=== PATIENT | male | born 1935 | race Caucasian/White ===

== ENCOUNTER → 2016-05-02 | Outpatient (CLI) | payer OTHER ==
--- NOTE | 2016-05-02 10:26 | US ---
Ultrasound of the Abdomen, Limited with liver and shunt color flow Doppler evaluation History: Recent TIPS procedure November,. Check shunt patency. Findings: Color flow Doppler liver and shunt: TIPS shunt is patent extending from the right portal vein to the right hepatic vein near the IVC. Hepatopedal flow is seen associated with the main portal vein and sp lenic vein. Subtle pulsatility is seen as expected. Normal pulsatile Doppler is present of the hepati c veins. Hepatic artery also is visualized with normal Doppler waveform. Color-flow duplex imaging of the shunt as follows: Proximal TIPS: 81 cm/s, mid TIPS: 110 cm/s, dista l TIPS: 58 cm/s, TIPS in the IVC, 81-101 cm/s. Pancreas: The pancreas head and body are normal in appearance. The tail of the pancreas is obscured b y overlying bowel gas. Liver: Mild heterogeneous echotexture without evidence of focal mass. The liver is normal in size shayla suring 14.3 cm in length. There is mild lobulated contour to the liver. Gallbladder: Small mobile gallstones are present within the gallbladder. There is no wall thickening, or pericholecystic fluid. The patient was not significantly tender over the gallbladder fossa. Comm on bile duct is normal measuring 5 mm in diameter. Right Kidney: Normal without hydronephrosis. Aorta: Visualized upper abdominal aorta demonstrates no aneurysm. Intrahepatic IVC: Normal Impression: 1. The tips shunt is patent without evidence of stenosis with normal color flow Doppler pattern and n ormal velocities. 2. Heterogeneous echotexture of the liver with slight lobulation of the contour suggestive of underly ing cirrhosis. 3. Tiny gallstone suspected in the gallbladder.
== END ==
LOC: FIMAGING 08:22
PROVIDERS: ATTEND Internal Medicine
DX: Z45.2 Encounter for adjustment and management of vascular access device (principal)

== ENCOUNTER → 2016-09-19 | Outpatient (CLI) | payer OTHER | LOC: FIMAGING 13:58 | PROVIDERS: ATTEND Psychiatry & Neurology Neurology | DX: G30.1 Alzheimer's disease with late onset (principal); F02.80 Dementia in other diseases classified elsewhere, unspecified severity, without behavioral disturbance, psychotic disturbance, mood disturbance, and anxiety ==

== ENCOUNTER 2017-01-03 11:44 | Inpatient (IN) | payer OTHER ==
--- NOTE | 2017-01-03 12:03 | EDPHY ---
H & P Stated Complaint: wound r leg looking infected/sees yen at wound clinic Time Seen by Provider: 01/03/17 12:03 - Personal History Current Tetanus/Diphtheria Vaccine: Yes Tetanus Vaccine Date: 2014 - Medical/Surgical History Hx Asthma: No Hx Chronic Respiratory Disease: No Hx Diabetes: No Hx Cardiac Disease: Yes Hx Renal Disease: No Hx Cirrhosis: Yes Hx Alcoholism: No Hx HIV/AIDS: No Hx Splenectomy or Spleen Trauma: No Other PMH: Polycythemia Vera, hypothyroid, Wenkebach, GI bleed, varacies, polio at age 13, sugery on lumbar spine L3-4 in 1970s, liver damage, portal HTN, recent pulmonary edema, melanoma on face, SENECA, esophageal varices, portal hypertension - Social History Smoking Status: Never smoked Constitutional: Initial Vital Signs Temperature (C) 36.9 C 01/03/17 11:50 Heart Rate 63 01/03/17 11:50 Respiratory Rate 17 01/03/17 11:50 Blood Pressure 103/54 L 01/03/17 11:50 O2 Sat (%) 97 01/03/17 11:50 O2 Delivery Mode Room Air Allergies/Adverse Reactions: adhesive Allergy (Verified 01/03/17 11:46) NSAIDS (Non-Steroidal Anti-Inflamma Allergy (Verified 01/03/17 11:46) Increased risk of bleeding due to hematological d.o. Home Medications: Medication Instructions Recorded Levothyroxine [Synthroid 50 mcg 50 mcg PO DAILY06 05/26/14 (*)] Hydroxyurea [Hydrea 500 mg (*)] 500 mg PO BID 07/19/15 Furosemide [Lasix 20 MG (*)] 20 mg PO DAILY #30 tab 09/22/15 Rifaximin [Xifaxan] 550 mg PO BID #60 tab 09/22/15 Sertraline HCl [Zoloft 50mg (*)] 50 mg PO DAILY@20 10/03/15 Dextran/Hypromellose/Glycerin 1 drop EACHEYE DAILY PRN 11/02/15 [Tears Naturale Forte Drops] Spironolactone [Aldactone] 50 mg PO DAILY 11/02/15 Donepezil HCl [Aricept 5 MG (*)] 5 mg PO HS 01/03/17 Herbals/Supplements -Info Only 1 ea PO DAILY 01/03/17 Medical Decision Making ED Course/Re-evaluation: CHIEF COMPLAINT: Rash HISTORY OF PRESENT ILLNESS: The patient is an 81 y/o male with a history of cellulitis, sepsis, cirrhosis, and chronic wounds arriving with his daughter complaining of a rash and swelling in his lower legs and streaking up to his groin onset today. He is followed by the wound care clinic and is changing dressings every five days. He is complaining of discomfort, particularly at the streaking in the groin area. He has no history of kidney problems, is currently afebrile and is not taking any antibiotics. REVIEW OF SYSTEMS: A 10 point review of systems was performed and is negative with the exception of the elements mentioned in the history of present illness. PHYSICAL EXAM: HR, BP, O2 Sat, RR. Temp noted General Appearance: Alert, well hydrated, appropriate, and non-toxic appearing. Head: Atraumatic without scalp tenderness or obvious injury Eyes: Pupils equal, round, reactive to light and accommodation, EOMI, no trauma , no injection. Nose: Atraumatic, no rhinorrhea, clear. Throat: Mucus membranes moist. Neck: Supple, nontender, no lymphadenopathy. Respiratory: No retractions, no distress, no wheezes, and no accessory muscle use. Lungs are clear to auscultation bilaterally. Cardiovascular: Regular rate and rhythm, no murmurs, rubs, or gallops. Dorsalis pedis, and posterior tibial pulses intact. Good capillary refill all extremities. Gastrointestinal: Abdomen is soft, nontender, non-distended, no masses, no rebound, no guarding, no peritoneal signs. Musculoskeletal: Normal active ROM of all extremities, atraumatic. Neurological: Alert, appropriate, and interactive. Non-focal neuro exam. Skin: Cellulitic changes to both lower legs with streaking and tenderness to groin on right side, worse on right, good turgor, no nodules on palpation. Past medical history: Cellulitis, open wounds, cirrhosis, portal hypertension, sepsis. Past surgical history: Denies Family history: Non-contributory Social history: Daughter at bedside, lives in [place], . DIFFERENTIAL DIAGNOSIS: The differential diagnosis for the patient's symptoms included but was not limited to cellulitis, chronic wound infection, pneumonia, urinary tract infection, viral syndrome, meningitis, and sepsis. MEDICAL DECISION MAKING: The patient is an 81 y/o male presenting with rash and open wounds in the lower extremities. He has a history of cellulitis and is being treated for the open wounds. The rash is primarily in the lower legs and extends into the groin with streaking. He is not currently on any antibiotics. As he does not have skilled care at home, I advised admission for several days of IV antibiotics to treat. The family is comfortable with this plan. Plan for IV, labs, and 1 g IV vancomycin. 1227- I spoke with hospitalist service. Dr. Almendarez will admit. - Data Points Medications Given: Discontinued Medications Vancomycin/Sodium Chloride (Vancomycin 1 Gm (Premix)) 250 mls @ 250 mls/hr IV EDNOW ONE PRN Reason: Protocol Stop: 01/03/17 13:13 Last Admin: 01/03/17 12:42 Dose: 250 mls Departure - Departure Disposition: [facility] In[facility] Acute Clinical Impression: Open wound Cellulitis Qualifiers: Site of cellulitis: extremity Site of cellulitis of extremity: lower extremity Laterality: unspecified laterality Qualified Code(s): L03.119 - Cellulitis of unspecified part of limb Condition: Fair Report Scribed for: Bebeto Hernandez Report Scribed by: Carmela Roldan Date of Report: 01/03/17 Time of Report: 14:53
[2017-01-03] MEDS ORDERED: VANCOMYCIN HCL/NORMAL SALINE 250 ML IV ONE (12:14)
[2017-01-03 12:54] LABS: % IMMATURE GRANULYOCYTES 1.7 % (0.0-1.1); ABSOLUTE IMMATURE GRANULOCYTES 0.16 10^3/uL (0.00-0.10); ADD DIFF? NO; ADD MORPH? YES; ADD SCAN? NO; ATYPICAL LYMPHOCYTE FLAG 0 (0-99); FRAGMENT RBC FLAG 20 (0-99); HEMATOCRIT 34.9 % (40.0-51.0); HEMOGLOBIN 12.2 g/dL (13.7-17.5); LEFT SHIFT FLG 10 (0-99); LIPEMIA HEMOLYSIS FLAG 90 (0-99); MEAN CELL HEMOGLOBIN 43.4 pg (27.9-34.1); MEAN PLATELET VOLUME 11.7 fL (8.7-11.7); PLATELET CLUMPS FLAG 0 (0-99); PLATELET COUNT 186 10^3/uL (150-400); RED BLOOD CELL COUNT 2.81 10^6/uL (4.40-6.38); RED CELL DISTRIBUTION WIDTH 15.8 % (11.5-15.2)
[2017-01-03 12:55] LABS: MEAN CELL VOLUME 124.2 fL (81.5-99.8)
[2017-01-03 13:07] LABS: ALANINE AMINOTRANSFERASE 32 IU/L (21-72); ALBUMIN 3.3 g/dL (3.5-5.0); ALKALINE PHOSPHATASE 72 IU/L (38-126); ANION GAP 10 mEq/L (8-16); ASPARTATE AMINOTRANSFERASE 27 IU/L (17-59); BILIRUBIN,TOTAL 2.1 mg/dL (0.1-1.4); BILIRUBIN-CONJUGATED 0.3 mg/dL (0.0-0.5); BILIRUBIN-UNCONJUGATED 1.8 mg/dL (0.0-1.1); CALCIUM 8.7 mg/dL (8.5-10.4); CARBON DIOXIDE 21 mEq/l (22-31); CHLORIDE 107 mEq/L (97-110); CREATININE 1.3 mg/dL (0.7-1.3); GLOMERULAR FILTRATION RATE 53; GLUCOSE 101 mg/dL (70-100); POTASSIUM 4.3 mEq/L (3.5-5.2); SODIUM 138 mEq/L (134-144); TOTAL PROTEIN 7.2 g/dL (6.3-8.2)
[2017-01-03 13:11] LABS: INR 1.47 (0.83-1.16); PROTIME(PATIENT) 17.8 SEC (12.0-15.0)
[2017-01-03 13:12] LABS: APTT 37.2 SEC (23.0-38.0)
[2017-01-03 14:00] LABS: ELLIPTOCYTES 1+; PLATELET ESTIMATE ADEQUATE (ADEQ)
[2017-01-03] MEDS ORDERED: ONDANSETRON 4 MG/2 ML VIAL IVP PRN (14:10)
[2017-01-03] MEDS ORDERED: ACETAMINOPHEN 325 MG TAB PO PRN (14:10)
[2017-01-03] MEDS ORDERED: ONDANSETRON DISINTEGRATING 4 MG TAB PO PRN (14:10)
[2017-01-03] MEDS ORDERED: HYPROMELLOSE EACHEYE PRN (14:16)
[2017-01-03] MEDS ORDERED: GLYCERIN EACHEYE PRN (14:16)
[2017-01-03] MEDS ORDERED: [UNRECOGNIZED DRUG - OTHER] EACHEYE PRN (14:16)
[2017-01-03] MEDS ORDERED: DEXTRAN EACHEYE PRN (14:16)
--- NOTE | 2017-01-03 14:22 | PDGENHP ---
History and Physical - Chief Complaint LE edema and redness - History of Present Illness 81 yo male with h/o cryptogenic cirrhosis and frequent hospital admissions for lower and upper GI bleeds who ultimately underwent TIPS in 11/2015 presents to ED with LE swelling, pain and redness. He has lymphedema and uses pumps to manage. He is still rather active, walking and even XC skiing last winter. He recently developed oozing wounds on his RLE and over the past 24 hrs, his daughter noticed that his RLE is more red, warm, tender and he now has streaking up into his inner thigh. He denies fevers or chills. No CP, SOB or dizziness. No changes in his bowel or bladder habits. Due to concern for cellulitis, he is admitted to the hospital for IV atbx. History Information - Allergies/Home Medication List Allergies/Adverse Reactions: adhesive Allergy (Verified 01/03/17 11:46) NSAIDS (Non-Steroidal Anti-Inflamma Allergy (Verified 01/03/17 11:46) Increased risk of bleeding due to hematological d.o. Home Medications: Levothyroxine [Synthroid 50 mcg (*)] 50 mcg PO DAILY06 05/26/14 [Last Taken 07:00] Hydroxyurea [Hydrea 500 mg (*)] 500 mg PO BID 07/19/15 [Last Taken 11/02/15 09: 00] Sertraline HCl [Zoloft 50mg (*)] 50 mg PO DAILY@20 10/03/15 [Last Taken 09:00] Dextran/Hypromellose/Glycerin [Tears Naturale Forte Drops] 1 drop EACHEYE DAILY PRN 11/02/15 [Last Taken Unknown] Spironolactone [Aldactone] 50 mg PO DAILY 11/02/15 [Last Taken 11/02/15 09:00] Donepezil HCl [Aricept 5 MG (*)] 5 mg PO HS 01/03/17 [Last Taken Unknown] Herbals/Supplements -Info Only 1 ea PO DAILY 01/03/17 [Last Taken Unknown] I have personally reviewed and updated: family history, medical history, social history, surgical history - Past Medical History Additional medical history: Cryptogenic cirrhosis. H/O gastric and esophageal varices. H/O recurrent upper and lower GIB. S/P TIPS 11/2015. PCV. Polio age 13. Wenkeback heart block. Hypothyroidism - Surgical History Additional surgical history: TIPS 11/2015. L3-L4 spinal surgery - Family History Positive for: non-pertinent - Social History Smoking Status: Never smoked Alcohol Use: None Drug Use: None Additional social history: [facility] Daughter is present at bedside. He is still active as his lymphedema allows him taking walks daily. Review of Systems Review of Systems: ROS: 10pt was reviewed & negative except for what was stated in HPI & below Physical Exam Physical Exam: Temp Pulse Resp BP Pulse Ox 36.6 C 58 L 16 106/63 97 01/03/17 13:48 01/03/17 13:48 01/03/17 13:48 01/03/17 13:48 01/03/17 13:48 Constitutional: no apparent distress Eyes: PERRL Ears, Nose, Mouth, Throat: moist mucous membranes Cardiovascular: regular rate and rhythym, no murmur, rub, or gallop Respiratory: no respiratory distress, clear to auscultation Gastrointestinal: normoactive bowel sounds, soft, non-tender abdomen, other (no distention or fluid wave) Skin: warm Musculoskeletal: other (B/L 2+ LE pitting edema with chronic venous stasis changes, open wounds on RLE with some fibrinous deposits. RLE with brighter erythema and vague streaking into inner thigh, +warmth) Neurologic: AAOx3 Psychiatric: interacting appropriately Lab Data & Imaging Review 01/03/17 12:35 01/03/17 12:35 WBC 9.61 10^3/uL (3.80-9.50) H 01/03/17 12:35 RBC 2.81 10^6/uL (4.40-6.38) L 01/03/17 12:35 Hgb 12.2 g/dL (13.7-17.5) L 01/03/17 12:35 Hct 34.9 % (40.0-51.0) L 01/03/17 12:35 MCV 124.2 fL (81.5-99.8) H 01/03/17 12:35 MCH 43.4 pg (27.9-34.1) H 01/03/17 12:35 MCHC 35.0 g/dL (32.4-36.7) 01/03/17 12:35 RDW 15.8 % (11.5-15.2) H 01/03/17 12:35 Plt Count 186 10^3/uL (150-400) 01/03/17 12:35 MPV 11.7 fL (8.7-11.7) 01/03/17 12:35 Neut % (Auto) 79.6 % (39.3-74.2) H 01/03/17 12:35 Lymph % (Auto) 4.8 % (15.0-45.0) L 01/03/17 12:35 [place] % (Auto) 12.2 % (4.5-13.0) 01/03/17 12:35 Eos % (Auto) 0.7 % (0.6-7.6) 01/03/17 12:35 Baso % (Auto) 1.0 % (0.3-1.7) 01/03/17 12:35 Nucleat RBC Rel Count 0.0 % (0.0-0.2) 01/03/17 12:35 Absolute Neuts (auto) 7.65 10^3/uL (1.70-6.50) H 01/03/17 12:35 Absolute Lymphs (auto) 0.46 10^3/uL (1.00-3.00) L 01/03/17 12:35 Absolute Monos (auto) 1.17 10^3/uL (0.30-0.80) H 01/03/17 12:35 Absolute Eos (auto) 0.07 10^3/uL (0.03-0.40) 01/03/17 12:35 Absolute Basos (auto) 0.10 10^3/uL (0.02-0.10) 01/03/17 12:35 Absolute Nucleated RBC 0.00 10^3/uL (0-0.01) 01/03/17 12:35 Immature Gran % 1.7 % (0.0-1.1) H 01/03/17 12:35 Immature Gran # 0.16 10^3/uL (0.00-0.10) H 01/03/17 12:35 Platelet Estimate ADEQUATE (ADEQ) 01/03/17 12:35 Tear Drop Cells 1+ H 01/03/17 12:35 Elliptocytes 1+ H 01/03/17 12:35 PT 17.8 SEC (12.0-15.0) H 01/03/17 12:35 INR 1.47 (0.83-1.16) H 01/03/17 12:35 APTT 37.2 SEC (23.0-38.0) 01/03/17 12:35 Sodium 138 mEq/L (134-144) 01/03/17 12:35 Potassium 4.3 mEq/L (3.5-5.2) 01/03/17 12:35 Chloride 107 mEq/L (97-110) 01/03/17 12:35 Carbon Dioxide 21 mEq/l (22-31) L 01/03/17 12:35 Anion Gap 10 mEq/L (8-16) 01/03/17 12:35 BUN 25 mg/dL (7-23) H 01/03/17 12:35 Creatinine 1.3 mg/dL (0.7-1.3) 01/03/17 12:35 Estimated GFR 53 01/03/17 12:35 Glucose 101 mg/dL (70-100) H 01/03/17 12:35 Calcium 8.7 mg/dL (8.5-10.4) 01/03/17 12:35 Total Bilirubin 2.1 mg/dL (0.1-1.4) H 01/03/17 12:35 Conjugated Bilirubin 0.3 mg/dL (0.0-0.5) 01/03/17 12:35 Unconjugated Bilirubin 1.8 mg/dL (0.0-1.1) H 01/03/17 12:35 AST 27 IU/L (17-59) 01/03/17 12:35 ALT 32 IU/L (21-72) 01/03/17 12:35 Alkaline Phosphatase 72 IU/L (38-126) 01/03/17 12:35 Total Protein 7.2 g/dL (6.3-8.2) 01/03/17 12:35 Albumin 3.3 g/dL (3.5-5.0) L 01/03/17 12:35 Lipase 198 IU/L (23-300) 01/03/17 12:35 Assessment & Plan Assessment: RLE cellulitis - Wound culture sent. No risk factors or h/o MRSA. No fevers. Minimal leukocytosis, does not appear septic. -IV Ancef -f/u culture data -elevate legs above the heart B/L LE wounds in setting lymphedema - followed by wound / lymphedema clinic, uses pump. 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 Cont diuretics as above. Hypothyroidism - appears a bit exopthalmic -check TSH -cont levothyroxine Full code DVT PPLX - Lovenox Dispo - inpt, will likely require >48 hrs hospitalization for management of LE cellulitis
[2017-01-03] MEDS ORDERED: TEARS/DEXTRAN 70/HYPROMELLOSE 15 ML OPHT.BTL EACHEYE PRN (14:41)
[2017-01-03] MEDS: SERTRALINE HCL 50 MG TAB PO SCH (20:36)
[2017-01-03] MEDS: DONEPEZIL HCL 5 MG TAB PO SCH (20:36)
[2017-01-03] MEDS: RIFAXIMIN 550 MG TAB PO SCH (20:36)
[2017-01-03] MEDS: HYDROXYUREA 500 MG CAP PO SCH (20:36)
[2017-01-03] MEDS ORDERED: ceFAZolin 1 GM in D5W 50 ML IV SCH (22:00)
[2017-01-04 05:32] LABS: % IMMATURE GRANULYOCYTES 1.6 % (0.0-1.1); ABSOLUTE IMMATURE GRANULOCYTES 0.13 10^3/uL (0.00-0.10); ADD DIFF? NO; ADD MORPH? YES; ADD SCAN? NO; ATYPICAL LYMPHOCYTE FLAG 0 (0-99); FRAGMENT RBC FLAG 20 (0-99); HEMATOCRIT 29.5 % (40.0-51.0); HEMOGLOBIN 10.3 g/dL (13.7-17.5); LEFT SHIFT FLG 20 (0-99); LIPEMIA HEMOLYSIS FLAG 90 (0-99); MEAN CELL HEMOGLOBIN 43.3 pg (27.9-34.1); MEAN CELL HEMOGLOBIN CONCENTR. 34.9 g/dL (32.4-36.7); MEAN PLATELET VOLUME 11.2 fL (8.7-11.7); PLATELET CLUMPS FLAG 0 (0-99); PLATELET COUNT 154 10^3/uL (150-400); RED BLOOD CELL COUNT 2.38 10^6/uL (4.40-6.38); RED CELL DISTRIBUTION WIDTH 15.7 % (11.5-15.2)
[2017-01-04] MEDS: LEVOTHYROXINE 50 MCG TAB PO SCH (05:35)
[2017-01-04 05:48] LABS: MEAN CELL VOLUME 123.9 fL (81.5-99.8)
[2017-01-04 06:01] LABS: ALANINE AMINOTRANSFERASE 31 IU/L (21-72); ALBUMIN 2.7 g/dL (3.5-5.0); ALKALINE PHOSPHATASE 73 IU/L (38-126); ANION GAP 6 mEq/L (8-16); ASPARTATE AMINOTRANSFERASE 23 IU/L (17-59); BILIRUBIN,TOTAL 1.8 mg/dL (0.1-1.4); CALCIUM 8.2 mg/dL (8.5-10.4); CARBON DIOXIDE 23 mEq/l (22-31); CHLORIDE 109 mEq/L (97-110); CREATININE 1.3 mg/dL (0.7-1.3); GLOMERULAR FILTRATION RATE 53; GLUCOSE 80 mg/dL (70-100); POTASSIUM 4.4 mEq/L (3.5-5.2); SODIUM 138 mEq/L (134-144); TOTAL PROTEIN 6.2 g/dL (6.3-8.2)
[2017-01-04 06:40] LABS: ACANTHOCYTES 1+; KERATOCYTES 1+; MACROCYTES 2+; PLATELET ESTIMATE ADEQUATE (ADEQ); POLYCHROMASIA 1+
[2017-01-04] MEDS ORDERED: ENOXAPARIN 40 MG/0.4 ML SYR SC SCH (09:00)
[2017-01-04] MEDS: RIFAXIMIN 550 MG TAB PO SCH ×2 (09:02→21:28)
[2017-01-04] MEDS: SPIRONOLACTONE 50 MG TAB PO SCH (09:02)
[2017-01-04] MEDS: HYDROXYUREA 500 MG CAP PO SCH ×2 (09:02→21:28)
[2017-01-04] MEDS: FUROSEMIDE 20 MG TAB PO SCH (09:02)
--- NOTE | 2017-01-04 09:03 | HOSPPROG ---
Hospitalist Progress Note Assessment/Plan: RLE cellulitis in setting of lymphedema and RLE wounds - Wound culture pending, 1+ GPC's on gram stain. No risk factors or h/o MRSA. No fevers. Minimal leukocytosis is resolved, does not appear septic. 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 Cont diuretics as above. -check ammonia Chronic encephalopathy - seems near baseline, on Rifaximin. At risk for delirium / sundowning. -prn risperdal hs -cog eval requested Hypothyroidism - appears a bit exopthalmic, though TSH nl. -cont levothyroxine Full code DVT PPLX - High risk, low dose Lovenox Dispo - inpt, will likely require >48 hrs hospitalization for management of LE cellulitis. PT/OT, cog evals planned Subjective: Pt is resting comfortable with cpap. No fevers. No pain. He had some mild delirium last night per RN. Denies pain. Objective: Vital Signs Temp Pulse Resp BP Pulse Ox 36.8 C 70 14 93/42 L 95 01/04/17 08:00 01/04/17 08:00 01/04/17 08:00 01/04/17 08:00 01/04/17 08:00 Laboratory Results 01/04/17 05:15 01/04/17 05:15 01/03/17 01/04/17 01/05/17 05:59 05:59 05:59 Intake Total 200 Output Total 425 Balance -225 PT 17.8 SEC (12.0-15.0) H 01/03/17 12:35 INR 1.47 (0.83-1.16) H 01/03/17 12:35 - Physical Exam Constitutional: no apparent distress Eyes: PERRL Ears, Nose, Mouth, Throat: moist mucous membranes Cardiovascular: regular rate and rhythym Respiratory: no respiratory distress, clear to auscultation Gastrointestinal: normoactive bowel sounds, soft, non-tender abdomen Skin: warm Musculoskeletal: full muscle strength, other (RLE with increased erythema compared to left though mild improvement today, 1-2+ b/l LE edema with 2+ DP's) Psychiatric: poor insight, poor memory ICD10 Worksheet Patient Problems: Problems Problem Status Onset Cellulitis Acute Open wound Acute Upper gastrointestinal hemorrhage Active AVM (arteriovenous malformation) of colon Acute Anemia Acute Chronic Disease Mgmt/Transitional Care Acute Cirrhosis Acute GI bleed Acute Hematemesis Acute Pneumonia Acute Portal hypertension Acute Portal hypertension with esophageal varices Acute Upper GI bleed Acute
[2017-01-04] MEDS ORDERED: risperiDONE 0.5 MG TAB PO PRN (09:07)
--- NOTE | 2017-01-04 11:42 | ASMTCMCOM ---
CM Note CM Note Notes: Chart reviewed. Met with patient and his daughter who is present at bedside. [facility] Diagnosis of cellulitis. Treating with IVATB and would care following. Needs TBD. CM to follow. Date Signed: 01/04/2017 11:41 AM Electronically Signed By:Emily Mcknight RN
--- NOTE | 2017-01-04 13:40 | WOCRNPDOC ---
WOCRN Advanced Assessment Note - Skin Integrity Problem, Advanced Assess Right Lower Leg Dressing Type: Allevyn Life, Collagen (Lucia Promogran Ag) Dressing Description: Clean/Dry, Intact Exudate Amount: Minimal Exudate Color: Yellow, Reddish/Yellow Exudate Characteristic(s): Serosanguinous Integumentary Issue Intervention: Dressing Changed, Dressing Initialed & Dated, Mechanical Debridement (removed slough using NS and gauze) Maryan Wound Tissue: Erythema, Swollen Maryan Wound Swelling: Moderate Wound Bed Color: Red, Yellow Wound Bed Constitution: Smooth Tissue (non-granulating), Adhered Slough, Loose Slough Wound Edges: Irregular Site Odor: None Site Measurement - Head-to-Toe Length X Width X Depth (cm): R prox lateral: 0.6qxj3xti6.2cm. R distal lateral: 1.2xmx0.7cmx0.2cm. R prox medial: 1.2cmx0.9cmx0.2cm. R distal medial: 0.5cmx0.5cmx0.1cm Skin Integrity Problem Comment: Four discrete, slough-filled venous stasis ulcers noted on patient's R lower leg. +1 pitting edema in both extremities, w/ R having slightly more erythema than the L. Of note, is that there is a new wound (per daughter's report) on the R lower medial leg, measuring 0.5cmx0.5cm. Per patient's daughter Daxa, [facility]. Prior to this hospitalization, he was having these dressings changed every 5 days by either family or home health, and he was using both compression stockings and lymphadema pumps BID. I measured him for compression stockings to use while he is here (Spandigrip size E), but advise waiting 72 hours after initiation of ABT before resuming lymphadema pumps. Today, I mechanically debrided the wounds of loose slough, and resumed current outpatient wound care orders, which include Lucia Promogran Ag collagen and Allevyn Life dressings. Patient will follow up w/ [facility] for ongoing tx after dc. Report given to cognos architectROXANA Fowler.
[2017-01-04] MEDS: DONEPEZIL HCL 5 MG TAB PO SCH (21:28)
[2017-01-04] MEDS: SERTRALINE HCL 50 MG TAB PO SCH (21:28)
[2017-01-05] MEDS: LEVOTHYROXINE 50 MCG TAB PO SCH (05:29)
[2017-01-05] MEDS: FUROSEMIDE 20 MG TAB PO SCH (10:27)
[2017-01-05] MEDS: RIFAXIMIN 550 MG TAB PO SCH ×2 (10:27→20:31)
[2017-01-05] MEDS: SPIRONOLACTONE 50 MG TAB PO SCH (10:27)
[2017-01-05] MEDS: HYDROXYUREA 500 MG CAP PO SCH ×2 (10:27→20:31)
[2017-01-05] MEDS: ENOXAPARIN 40 MG/0.4 ML SYR SC SCH ×2 (10:28→10:37)
[2017-01-05] MEDS ORDERED: VANCOMYCIN HCL/NORMAL SALINE 250 ML IV SCH (12:30)
[2017-01-05] MEDS: HYDROCORTISONE 1% CREAM TP SCH ×2 (13:43→20:37)
--- NOTE | 2017-01-05 14:38 | ASMTCMCOM ---
CM Note CM Note Notes: CM met w/ pt and family for dispo planning. PT is recommending home w/ 24hr non skilled HC. OT is recommending HH. [facility] and f/u on an outpatient basis. Pt receives non skilled HC daily from 7am-2pm and 5pm-10pm. [facility] and daughter will transport pt back when he is medically stable. CM to follow. Date Signed: 01/06/2017 10:41 AM Electronically Signed By:EUGENIA Ferguson
--- NOTE | 2017-01-05 14:43 | HOSPPROG ---
Hospitalist Progress Note Assessment/Plan: 81y male with RLE pain, wound and redness. First encounter, chart reviewed. D/W Daughter and CM. RLE cellulitis in setting of lymphedema and RLE wounds - Wound culture prelim NGTD, 1+ GPC's on gram stain. No risk factors or h/o MRSA. No fevers. Minimal leukocytosis is resolved, does not appear septic. 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 Cont diuretics as above. -ammonia elevated -offered lactulose but daughter wants to defer -will follow outpt Chronic encephalopathy - seems near baseline, on Rifaximin. At risk for delirium / sundowning. -DC to regualr [facility]rom[facility] -prn risperdal hs Hypothyroidism - appears a bit exopthalmic, though TSH nl. -cont levothyroxine Conjunctivitis -no therapy yet -left eye, follow Dermatitis -hydrocortisone, forehead Full code DVT PPLX - High risk, low dose Lovenox Dispo - inpt, will likely require >48 hrs hospitalization for management of LE cellulitis. PT/OT, cog evals planned D/W Dr Mata. Subjective: Feeling ok. Some confusion. Daughter at bedside. Objective: Vital Signs Temp Pulse Resp BP Pulse Ox 36.8 C 65 12 101/45 L 94 01/05/17 08:00 01/05/17 08:00 01/05/17 08:00 01/05/17 08:00 01/05/17 08:00 Laboratory Results 01/04/17 05:15 01/04/17 05:15 01/04/17 01/05/17 01/06/17 05:59 05:59 05:59 Intake Total 200 75 Output Total 425 Balance -225 75 PT 17.8 SEC (12.0-15.0) H 01/03/17 12:35 INR 1.47 (0.83-1.16) H 01/03/17 12:35 - Physical Exam Constitutional: appears nourished, chronically ill appearing, uncomfortable Eyes: PERRL, EOMI, other (conjunctivisit) Ears, Nose, Mouth, Throat: moist mucous membranes, hearing normal, ears appear normal Cardiovascular: edema, No JVD, No tachycardia Respiratory: no respiratory distress, no rales or rhonchi, reduced air movement Gastrointestinal: No tenderness, No ascites, No guarding Skin: warm, erythema, pressure ulcer Musculoskeletal: normal joint ROM, no joint effusions, generalized weakness Psychiatric: not anxious, not encephalopathic, poor insight, poor judgement, poor memory ICD10 Worksheet Patient Problems: Problems Problem Status Onset Upper gastrointestinal hemorrhage Active Pneumonia Acute Chronic Disease Mgmt/Transitional Care Acute GI bleed Acute Portal hypertension Acute Anemia Acute Portal hypertension with esophageal varices Acute Cirrhosis Acute AVM (arteriovenous malformation) of colon Acute Hematemesis Acute Upper GI bleed Acute Cellulitis Acute Open wound Acute
[2017-01-05] MEDS: DONEPEZIL HCL 5 MG TAB PO SCH (20:31)
[2017-01-05] MEDS: SERTRALINE HCL 50 MG TAB PO SCH (20:31)
[2017-01-06] MEDS: LEVOTHYROXINE 50 MCG TAB PO SCH (05:29)
--- NOTE | 2017-01-06 08:42 | PDIAF ---
- Diagnosis Diagnosis: cellulitis Code Status: Full Code - Medication Management Discharge Medications: Medications to Continue on Transfer Levothyroxine [Synthroid 50 mcg (*)] 50 mcg PO DAILY06 05/26/14 [Last Taken 07:00] Hydroxyurea [Hydrea 500 mg (*)] 500 mg PO BID 07/19/15 [Last Taken 11/02/15 09: 00] Furosemide [Lasix 20 MG (*)] 20 mg PO DAILY #30 tab 09/22/15 [Last Taken 07:00] Rifaximin [Xifaxan] 550 mg PO BID #60 tab 09/22/15 [Last Taken 11/02/15 09:00] Sertraline HCl [Zoloft 50mg (*)] 50 mg PO DAILY@20 10/03/15 [Last Taken 09:00] Dextran/Hypromellose/Glycerin [Tears Naturale Forte Drops] 1 drop EACHEYE DAILY PRN 11/02/15 [Last Taken Unknown] Spironolactone [Aldactone] 50 mg PO DAILY 11/02/15 [Last Taken 11/02/15 09:00] Donepezil HCl [Aricept 5 MG (*)] 5 mg PO HS 01/03/17 [Last Taken Unknown] Herbals/Supplements -Info Only 1 ea PO DAILY 01/03/17 [Last Taken Unknown] Doxycycline Hyclate 100 mg PO BID #14 tablet 01/06/17 [Last Taken Unknown] Discharge Medications: Refer to the Discharge Home Medication list for PRN reason. - Orders Services needed: Home Care, Registered Nurse, Physical Therapy, Occupational Therapy Home Care Face to Face: I certify that this patient was under my care and that I had the required [id number] encounter meeting the encounter requirements on the discharge day. My findings support the fact that the patient is homebound as defined in Home Care Face to Face Continued: CMS Chapter 7 Medicare Benefits Manual 30.1.1 , The condition of the patient is such that there exists a normal inability to leave home and consequently, leaving home would require a considerable and taxing effort. Diet Recommendation: sodium restricted Diet Texture: Regular Texture Diet, Thin Liquids, Meds Whole w/Liquids - Follow Up Care Current Providers and Referrals: Jorge Lewis MD [Primary Care Provider] -
[2017-01-06 08:51] VITALS: BP 95/50; PULSE 68; RESP 12; TEMP 98.5; O2SAT 92
[2017-01-06] MEDS: FUROSEMIDE 20 MG TAB PO SCH (09:39)
[2017-01-06] MEDS: RIFAXIMIN 550 MG TAB PO SCH (09:39)
[2017-01-06] MEDS: SPIRONOLACTONE 50 MG TAB PO SCH (09:39)
[2017-01-06] MEDS: HYDROXYUREA 500 MG CAP PO SCH (09:39)
[2017-01-06] MEDS: HYDROCORTISONE 1% CREAM TP SCH (09:47)
--- NOTE | 2017-01-06 12:02 | ASMTCMCOM ---
CM Note CM Note Notes: Pt is being discharged today. [facility] via transport by daughter. CM spoke w/ Maria C at the [facility] and confirmed d/c. CM faxed over d/c paperwork. CM provided ROXANA Santos w/ phone number to give report. CM met w/ daughter Annie for dispo planning. Daughter was inquiring if pt could get flu shot before discharging. CM spoke w/ Dr. Mata regarding this and she will put in an order. CM made a referral to [facility] per the request of the [facility] and daughter. [facility] has accepted pt and will start care tomorrow. Pts wound dressing needs to be changed tomorrow and [facility] will assist. CM available for changes. Date Signed: 01/06/2017 12:01 PM Electronically Signed By:EUGENIA Ferguson
--- NOTE | 2017-01-06 12:58 | GDS ---
[f rep st] DISCHARGE SUMMARY DISCHARGE DIAGNOSES: Include: 1. Lower extremity cellulitis of the right leg with chronic right lower extremity wounds. 2. Bilateral lower extremity edema. 3. Cryptogenic cirrhosis with history of varices, status post transjugular intrahepatic portosystemi c shunt (TIPS), 2016. 4. Chronic encephalopathy. 5. Hypothyroidism. 6. Conjunctivitis. 7. Dermatitis. 8. Polio at age 13. 9. History of recurrent upper and lower gastrointestinal bleeds. HISTORY OF PRESENT ILLNESS: This is an 81-year-old gentleman, a resident at the [facility], who present s with complaints of worsening lower extremity edema and cellulitis. For details of the patient's in itial presentation, please see the history and physical dated 01/03/2017. CONSULTATIVE SERVICES: Include Wound Care. PROCEDURES: None. HOSPITAL COURSE: By issue: 1. Right lower extremity cellulitis with right lower extremity wounds. Patient was placed on IV van comycin. Wound cultures were drawn and remain no growth to date. Patient was continued on antibioti cs for 3 days with steady improvement in his erythema and swelling. On the day of disposition, the p atient is being transitioned to oral antibiotics which he will complete in the outpatient setting: D oxycycline 100 mg, total of 14 doses; a 7-day course post disposition. 2. Lower extremity edema. Patient was treated with diuretic therapy during his hospital stay. He w ill be continued on his home doses of Lasix 40 and spironolactone 50 at disposition. 3. Chronic encephalopathy. Patient was continued on his rifaximin. We have recommended additional use of lactulose in the setting. The family is waiting to initiate this medication until the end of the week when they have a family celebration and wedding. Will readdress with the primary care monika king in the outpatient setting. MEDICATIONS AT THE TIME OF TRANSFER: Please reference Medication Reconciliation printed on 7. FOLLOWUP APPOINTMENTS: Include with his primary care provider post discharge for followup of his low er extremity cellulitis. Patient is being discharged to the [facility] with additional nursing, physica l therapy, occupational therapy, and speech. PENDING STUDIES: At the time of this dictation include wound cultures drawn 01/03/2017, which are pr eliminary; no growth to date. TIME SPENT: I spent greater than 30 minutes in the planning and coordination of this discharge. /[id number]/MODL
[2017-01-06] MEDS ORDERED: VANCOMYCIN HCL/NORMAL SALINE 250 ML IV SCH (14:00)
--- NOTE | 2017-01-06 16:58 | ASDISCHSUM ---
Discharge Information Plan Status:Assisted Living Medically Cleared to Leave:01/06/2017 Discharge Date:01/06/2017 12:45 PM D/C Disposition:Home Health Service [facility] D/C Disposition:Home, Routine, Self-Care Projected Discharge Date:01/06/2017 12:00 AM Transportation at D/C: Discharge Delay Reason: Follow-Up Date:01/06/2017 12:00 AM Discharge Slot: Final Diagnosis: Placement Information Referral Type:*Home Health Care Services Referral ID:[id number] Provider Name:[facility] Address 1:[address] [facility] Phone Number: Address 2: Fax Number: City:[place] Selection Factors: State:[place] Patient Contact Information Contact Name:SOUTH Relationship:Son Address: Home Phone: City:[place] Alternate Phone: [facility] Code:[place] Email: Financial Information Financial Class: Primary Plan Desc:MEDICARE INPATIENT Primary Plan Number:[id number] Secondary Plan Desc:[employer] Secondary Plan Number:[id number] Assessment Information [facility] CM Progress Note CM Note CM Note Notes: Chart reviewed. Met with patient and his daughter who is present at bedside. Patient currently resident at the [facility]. Diagnosis of cellulitis. Treating with IVATB and would care following. Needs TBD. CM to follow. Date Signed: 01/04/2017 11:41 AM Electronically Signed By:Emily Mcknight RN [facility] CM Progress Note CM Note CM Note Notes: CM met w/ pt and family for dispo planning. PT is recommending home w/ 24hr non skilled HC. OT is recommending HH. [facility] and f/u on an outpatient basis. Pt receives non skilled HC daily from 7am-2pm and 5pm-10pm. Pt resides at the [facility] and daughter will transport pt back when he is medically stable. CM to follow. Date Signed: 01/06/2017 10:41 AM Electronically Signed By:EUGENIA Ferguson [facility] Progress Note CM Note CM Note Notes: Pt is being discharged today. Pt will return to the [facility] via transport by daughter. CM spoke w/ Maria C at the [facility] and confirmed d/c. CM faxed over d/c paperwork. CM provided ROXANA Santos w/ phone number to give report. CM met w/ daughter Annie for dispo planning. Daughter was inquiring if pt could get flu shot before discharging. CM spoke w/ Dr. Mata regarding this and she will put in an order. CM made a referral to [facility] per the request of the [facility] and daughter. [facility] has accepted pt and will start care tomorrow. Pts wound dressing needs to be changed tomorrow and [facility] will assist. CM available for changes. Date Signed: 01/06/2017 12:01 PM Electronically Signed By:EUGENIA Ferguson Intervention Information Intervention Type:*Incorrect Registration Date of Service:01/03/2017 02:10 PM Patient Type:Inpatient Staff Member:ROXANA Sanderson Shelly Hours:0.25 Discipline: Severity:1 (0-1 Hours) Comment:Registered observation, admit order wr itten for inpatient status. Intervention Type:*IM-Signed Date of Service:01/06/2017 10:04 AM Patient Type:Inpatient Staff Member:Natalie Hanley Hours: Discipline: Severity: Comment:
== END 2017-01-06 12:45 | disposition home health service (06) | DRG 602 ==
LOC: OBSVTOIN 14:10 → F3E 14:15
PROVIDERS: ADMIT Student in an Organized Health Care Education/Training Program; ATTEND Hospitalist
DX: L03.115 Cellulitis of right lower limb (principal); L03.125 Acute lymphangitis of right lower limb; L97.211 Non-pressure chronic ulcer of right calf limited to breakdown of skin; I89.0 Lymphedema, not elsewhere classified; K74.69 Other cirrhosis of liver; G93.49 Other encephalopathy; K76.6 Portal hypertension; Z95.828 Presence of other vascular implants and grafts; E03.9 Hypothyroidism, unspecified; Z85.820 Personal history of malignant melanoma of skin
CPT/HCPCS: 92523-GN; 92610-GN; 97116-GP; 97161-GP; 97165-GO; 97530-GP; 97535-GO; G8978-GP-CI; G8979-GP-CI; G8980-GP-CI; G8987-GO-CJ; G8988-GO-CI; G9168-GN-CL; G9169-GN-CK; J0690; J1650; J3370

== ENCOUNTER 2017-04-11 17:04 | Inpatient (IN) | payer OTHER ==
--- NOTE | 2017-04-11 17:15 | EDPHY ---
H & P HPI/ROS: CHIEF COMPLAINT: Right leg pain, fever, chills. HISTORY OF PRESENT ILLNESS: This patient is an 81 year old male with history of cryptogenic cirrhosis, polycythemia vera, renal insufficiency, and venous insufficiency arriving with his son complaining of right leg pain, fever, and chills. He has a right lower extremity wound that is followed by the wound clinic with dressing changes every 3 days. His dressing was changed yesterday. He was evaluated for cellulitis by Dr. Cole, infectious disease specialist and Dr. Cohen, general surgeon on 03/20/17. At that time he was started on a ten-day course of Augmentin, which has been completed. He lives in an assisted living setting at the [facility]. Last night he complained about right lower extremity pain. He was febrile at 101 degrees about three hours prior to arrival. He has taken Tylenol for fever reduction. His son at bedside states he is not taking any current antibiotics for his legs, but is on Xifaxan. His son states that that patient has had a reduced appetite today and seems more confused than usual. Apparently has some dementia or encephalopathy that began after a TIPS procedure in 2015. He denies cough, shortness of breath, vomiting, diarrhea, urinary complaints, or other associated symptoms. REVIEW OF SYSTEMS: A ten point review of systems was performed and is negative with the exception of the items mentioned in the HPI. Past medical history: 1. Polycythemia Vera 2. Hypothyroid 3. Wenckebach heart block 4. GI bleed, upper and lower 5. Esophageal varices 6. History of polio (age 13) 7. Cryptogenic cirrhosis 8. Portal hypertension Past surgical history: 1. Lumbar spine L3-4 surgery (1970s) 2. Tips procedure November 2015 Family history: Noncontributory. Social history: Son at bedside. Retired. [employer]. General Appearance: Alert. Vital signs reviewed. Afebrile. Eyes: Pupils equal and round, no conjunctival injection, no discharge. Anicteric. ENT, Mouth: Mucous membranes are dry, no oropharyngeal erythema or edema. Neck: No lymphadenopathy, supple. Respiratory: Lungs are clear to auscultation; no wheezes, rales, or rhonchi. Cardiovascular: Regular rate and rhythm; no murmur, rub, or gallop. Gastrointestinal: Abdomen is soft and nontender, no masses or organomegaly, bowel sounds normal. Skin: Warm and dry, no rashes on exposed skin, normal color. Back: Nontender to palpation over the thoracolumbar spine. No CVAT. Extremities: Right lower extremity with warmth and erythema surrounding AA 9x7cm healing wound to the anterior ricketts, fibrinous at base. No purulence. Outline of erythema from the patient's appointment three weeks ago corresponds with his current presentation. Pitting edema to foot. Pulses: 2+ dorsalis pedis pulses bilaterally. Neurological: Alert and oriented. Moving all four extremities easily and equally. Psychiatric: Normal affect. - Personal History Tetanus Vaccine Date: 2014 - Medical/Surgical History Hx Asthma: No Hx Chronic Respiratory Disease: No Hx Diabetes: No Hx Cardiac Disease: Yes Hx Renal Disease: No Hx Cirrhosis: Yes Hx Alcoholism: No Hx HIV/AIDS: No Hx Splenectomy or Spleen Trauma: No Other PMH: Polycythemia Vera, hypothyroid, Wenkebach, GI bleed, varacies, polio at age 13, sugery on lumbar spine L3-4 in 1970s, liver damage, portal HTN, recent pulmonary edema, melanoma on face, [employer] [place], esophageal varices, portal hypertension - Social History Smoking Status: Never smoked Constitutional: Initial Vital Signs Temperature (C) 37.5 C 04/11/17 17:09 Heart Rate 88 04/11/17 17:09 Respiratory Rate 18 04/11/17 17:09 Blood Pressure 102/51 L 04/11/17 17:09 O2 Sat (%) 95 04/11/17 17:09 O2 Delivery Mode Room Air Allergies/Adverse Reactions: adhesive Allergy (Verified 04/11/17 17:08) NSAIDS (Non-Steroidal Anti-Inflamma Allergy (Verified 04/11/17 17:08) Increased risk of bleeding due to hematological d.o. Home Medications: Medication Instructions Recorded Levothyroxine [Synthroid 50 mcg 50 mcg PO DAILY06 05/26/14 (*)] Hydroxyurea [Hydrea 500 mg (*)] 500 mg PO BID 07/19/15 Rifaximin [Xifaxan] 550 mg PO BID #60 tab 09/22/15 Sertraline HCl [Zoloft 50mg (*)] 50 mg PO DAILY@20 10/03/15 Dextran/Hypromellose/Glycerin 1 drop EACHEYE DAILY PRN 11/02/15 [Tears Naturale Forte Drops] Spironolactone [Aldactone] 50 mg PO DAILY 11/02/15 Donepezil HCl [Aricept 5 MG (*)] 5 mg PO HS 01/03/17 Herbals/Supplements -Info Only 1 ea PO DAILY 01/03/17 Acetaminophen [Tylenol ES 500 mg 500 mg PO Q6 PRN 04/11/17 (*)] Furosemide [Lasix 40 MG (*)] 40 mg PO DAILY 04/11/17 levOFLOXACIN [levAQUIN (*)] 750 mg PO DAILY #5 tab 04/12/17 Medical Decision Making ED Course/Re-evaluation: 81 year old male presents with right leg pain that began yesterday and fever today. Exam reveals 9x7cm wound with healing fibrinous base, no purulence. Area of surrounding erythema and warmth corresponds with prior marked area from 03/20. This is suggestive of cellulitis. However, the extent of the erythema is similar to what was seen when he was in the wound clinic 3 weeks ago. There has been no extension of erythema, as best I can determine. Plan for labs including CBC, BMP, blood cultures. WBC elevated 18,000, compared to 15,000 on prior study 04/02/17. 18:[address] Toribio, hospitalist, who will be admitting the patient to med/surg for cellulitis. 19:[address] Coy, infectious disease specialist. He recommends Unasyn. Will also search for other sources of infection with influenza swab and UA. I do not suspect pulmonary infection. He is not hypoxic and is lungs are clear. No cough. Differential Diagnosis: Fever in adults including but not limited to cellulitis, abscess, necrotizing fasciitis, pneumonia, urinary tract infection, viral syndrome, and influenza. - Data Points Laboratory Results: Laboratory Results 04/11/17 18:05 04/11/17 18:05 Medications Given: Acetaminophen (Tylenol) 650 mg PO Q4HRS PRN PRN Reason: Pain, Mild/Fever, Can Take PO Stop: 10/08/17 19:11 Last Admin: 04/12/17 11:32 Dose: 650 mg Donepezil HCl (Aricept) 5 mg PO HS [facility] Stop: 10/08/17 20:59 Last Admin: 04/11/17 20:40 Dose: 5 mg Furosemide (Lasix) 40 mg PO DAILY [facility] Stop: 10/09/17 08:59 Last Admin: 04/12/17 11:59 Dose: 40 mg Hydroxyurea (Hydrea) 500 mg PO BID [facility] Stop: 10/08/17 20:59 Last Admin: 04/12/17 12:00 Dose: 500 mg Levothyroxine Sodium (Synthroid) 50 mcg PO DAILY06 [facility] Stop: 10/09/17 05:59 Last Admin: 04/12/17 06:25 Dose: Not Given Rifaximin (Xifaxan) 550 mg PO BID [facility] PRN Reason: Protocol Stop: 05/11/17 20:59 Last Admin: 04/12/17 11:59 Dose: 550 mg Sertraline HCl (Zoloft) 50 mg PO DAILY@20 [facility] Stop: 10/08/17 19:59 Last Admin: 04/11/17 20:40 Dose: 50 mg Spironolactone (Aldactone) 50 mg PO DAILY [facility] Stop: 10/09/17 08:59 Last Admin: 04/12/17 11:59 Dose: 50 mg Discontinued Medications Ampicillin Sodium/Sulbactam (Sodium 3 gm/ Sodium Chloride) 100 mls @ 200 mls/ hr IV EDNOW ONE PRN Reason: Protocol Stop: 04/11/17 19:35 Last Admin: 04/11/17 19:55 Dose: 100 mls Azithromycin 500 mg/ Dextrose 255 mls @ 255 mls/hr IV DAILY [facility] PRN Reason: Protocol Stop: 05/11/17 20:59 Last Admin: 04/12/17 11:33 Dose: Not Given Levofloxacin (Levaquin) 750 mg PO ONCE ONE PRN Reason: Protocol Stop: 04/12/17 11:22 Last Admin: 04/12/17 12:24 Dose: 750 mg Departure - Departure Disposition: [facility] Acute Clinical Impression: Cellulitis Qualifiers: Site of cellulitis: extremity Site of cellulitis of extremity: lower extremity Laterality: right Qualified Code(s): L03.115 - Cellulitis of right lower limb Condition: Fair Report Scribed for: Tammy Gomez Report Scribed by: Dorothea Suazo Date of Report: 04/11/17 Time of Report: 18:50 Physician Review and Approval Statement: 04/11/17 17:15 Portions of this note were transcribed by the director of graduate medical education. I, Dr. Tammy Gomez, personally performed the history, physical exam, and medical decision- making; and confirmed the accuracy of the information in the transcribed note.
[2017-04-11 18:15] LABS: PLATELET COUNT 200 10^3/uL (150-400)
[2017-04-11] MEDS ORDERED: AMPICILLIN/SULBACTAM 3 GM in NS 100 ML IV ONE (19:06)
[2017-04-11] MEDS ORDERED: ONDANSETRON 4 MG/2 ML VIAL IVP PRN (19:12)
[2017-04-11] MEDS ORDERED: ONDANSETRON DISINTEGRATING 4 MG TAB PO PRN (19:12)
[2017-04-11] MEDS ORDERED: ACETAMINOPHEN 325 MG TAB PO PRN (19:12)
--- NOTE | 2017-04-11 20:18 | GHP ---
[f rep st] HISTORY AND PHYSICAL DATE OF ADMISSION: 04/11/2017 HISTORY OF PRESENT ILLNESS: The patient is a pleasant 81-year-old gentleman with history of cryptogenic cirrhosis, and recently he has had a right lower extremity wound that is being followed by the Wound Clinic. He had a course of antibiotics about 10 days ago in the form of Augmentin. He lives at the [facility] , and his caregiver noted that his pain was severe, and he was febrile to about 101 degrees. When I see the patient, he denies fevers, denies pain. He has no cough, no myalgias. He does live in assisted living with communal meals. He does not have urinary symptoms. He has not had diarrhea. The patient has a history of encephalopathy that sort of corresponds to initiation of a TIPS procedure a number of years ago. I have known the patient from inpatient admissions over the last 5 or 6 years, and the patient is certainly more confused than he has been, although he is somewhat nonfocal on exam. REVIEW OF SYSTEMS: A complete 10-point review of systems conducted and negative except as noted in the HPI. PAST MEDICAL HISTORY: 1. Cryptogenic cirrhosis. 2. Status post TIPS in November 2015. 3. Lower extremity wound. Followed at wound care. 4. History of gastric esophageal varices. 5. History of recurrent upper and lower GI bleed. Now status post TIPS. 6. Polio at age 13. 7. History of Wenckebach heart block. 8. Hypothyroidism. 9. Spinal surgery. FAMILY HISTORY: His parents are . SOCIAL HISTORY: Nonsmoker. Rare alcohol. Lives in assisted living facility at the [facility]. He remains active. He worked in the [employer] industry. ALLERGIES: Adhesive and NSAIDs. MEDICATIONS: Rifaximin, Lasix, spironolactone, donepezil, hydroxy urea, levothyroxine, sertraline. PHYSICAL EXAMINATION: VITAL SIGNS: Temp 37.5, blood pressure 102/51, pulse 88 , breathing 18 a minute, 95% on room air. GENERAL: No acute distress. HEENT: Sclerae anicteric. Oropharynx clear. Mucous membranes moist. NECK: Supple without lymphadenopathy or JVD. LUNGS: Clear to auscultation bilaterally. HEART: S1, S2. ABDOMEN: Soft, nontender, nondistended. LOWER EXTREMITIES: Right lower extremity is bandaged. There is Adaptic mesh over a well-healing wound with some surrounding warmth and erythema, but does not necessarily look infected. His left lower extremity has trace edema bilaterally. NEUROLOGIC: The patient is encephalopathic and forgetful, but he does recall me from previous admission. LABS: White count 18.1 with a left shift, hematocrit 29.7 which is about his baseline, platelets are 200,000. Historically his INR is 1.5, was about 4 months ago. Sodium 136, potassium 4.6, chloride 105, bicarb 22, BUN 27, creatinine 1.2, glucose 92. There is no imaging. I have discussed the case with Dr. Tammy Gomez. ASSESSMENT/PLAN: An 81-year-old gentleman, well known to me, who presents with leukocytosis and fever with possible right lower extremity infection. 1. Right lower extremity infection. We will treat this as a cellulitis with Unasyn at the discretion of Dr. Coy. Blood cultures have been drawn. This does not appear to be necrotizing fasciitis. 2. Fever and leukocytosis. It is not entirely clear that the leg is the source of fever. It most likely is, it is just somewhat an unimpressive exam. I will check a chest x-ray, and urine culture, and influenza. He does not have ascites. 3. Cirrhosis. Continue spironolactone, refax imine, and Lasix. 4. Encephalopathy. His son is the bedside, whom I have also met many times. He did not seem particularly concerned. I have a feeling he is at his baseline. 5. Prophylaxis. Pharmacologic prophylaxis is relatively contraindicated in this patient with liver disease. We will provide SCD to the left leg. DISPOSITION: Inpatient status. ADDENDUM: CXR (interp by me) W lll PNEUMONIA. add azithromycin to unasyn /[id number]/MODL MTDD
[2017-04-11] MEDS ORDERED: TEARS/DEXTRAN 70/HYPROMELLOSE 15 ML OPHT.BTL EACHEYE PRN (20:23)
[2017-04-11] MEDS: DONEPEZIL HCL 5 MG TAB PO SCH (20:40)
[2017-04-11] MEDS: RIFAXIMIN 550 MG TAB PO SCH (20:40)
[2017-04-11] MEDS: SERTRALINE HCL 50 MG TAB PO SCH (20:40)
[2017-04-11] MEDS: AZITHROMYCIN IV 500 MG in D5W 250 ML IV SCH (21:37)
[2017-04-11] MEDS: HYDROXYUREA 500 MG CAP PO SCH (21:39)
--- NOTE | 2017-04-12 01:36 | PDMN ---
Medical Necessity Medical necessity: C/M review: est. > 2 MN LOS for eval and TX of acute and persistent right lower extremity infection to be treated as a cellulitis), leukocytosis, fever, pneumonia on CXR, encephalopathy, requiring IV Unasyn in ED , planned Wound Care consult, Infectious disease consult, ongoing IV Azithramycin, acute inpt PT/OT, comorbid chronic right lower extremity wound treated with course of oral Augmentin 10 days prior to this admission, failed outpt. therapy, history of cryptogenic cirrhosis, S/P TIPS 11/2015, gastric esophageal varices, recurrent upper and lower GI bleed, polio at age 13, Wenckebach heart block, hypothyroidism per H/P.
[2017-04-12] MEDS: LEVOTHYROXINE 50 MCG TAB PO SCH (06:25)
[2017-04-12] MEDS ORDERED: Herbals/Supplements -Info Only PO SCH (09:00)
[2017-04-12 11:01] LABS: PLATELET COUNT 179 10^3/uL (150-400)
[2017-04-12] MEDS: AZITHROMYCIN IV 500 MG in D5W 250 ML IV SCH (11:33)
--- NOTE | 2017-04-12 11:33 | PDDCSUM ---
Discharge Summary Discharge Summary: 82 yo male with hx of RLE wound, hepatic encephalopathy, admitted for acute on chronic encephalopathy and infection. Initially he was treated with one dose of Unasysn for RLE cellulitis by the E.D. but upon examination by our hospitalist who is familiar with the patient, he felt that another source of infection was more likely. A CXR was obtained which was c/w likely right lower lobe infiltrate and possible bronchitis. This led to his abx being changed to Azithromycin. On the day of discharge, the patient is back to baseline mentation. He remains in RA and family is requesting discharge. His RLE has some erythema but it is unclear if it is chronic. He was recently treated with augmentin for cellulitis and a picture from when this was diagnoses shows significant improvement at this time. He does have coarse sounds on the right lung. Leukocytosis is better. PC is pending. We will d/c him with Levaquin 750mg po daily which should cover both a possible CAP and cellulitis. He will f/u with his PCP next week. #RLE Cellulitis #CAP #Leukocytosis #Cirrhosis, no ascites #Hepatic encephalopathy Exam: VSS, RA NAD RRR COARSE BS R>L S/NT/ND NO LE EDEMA MEDS: SEE MED REC. LEVAQUIN PROVIDED F/U: WITH PCP TOTAL TIME SPENT ON D/C IS 35 MINS
--- NOTE | 2017-04-12 11:37 | WOCRNPDOC ---
WOCRN Advanced Assessment Note - Skin Integrity Problem, Advanced Assess Right Lower Leg Dressing Type: Adaptic Touch, Honey Sheet, Kerlix Exudate Amount: Moderate Exudate Color: Reddish/Yellow Exudate Characteristic(s): Serosanguinous Integumentary Issue Intervention: Dressing Applied Maryan Wound Tissue: Erythema, Macerated, Swollen Maryan Wound Swelling: Moderate Wound Bed Color: Red, Yellow Wound Bed Constitution: Red/[place] - Non Granular Tissue, Adhered Slough Wound Edges: Irregular Site Odor: None Site Measurement - Head-to-Toe Length X Width X Depth (cm): 13.5cmx9.6cmx0.2cm ( circumferential). 6.8nvs4eck5.3cm (R medial lower leg) Skin Integrity Problem Comment: Near circumferential wound noted to patient's RLE, slough-filled, appearance consistent w/ venous stasis. Patient currently being treated for infection in this extremity, with swelling and erythema throughout the periwound skin and c/o severe pain. Wound is also more exudative right now, and there is mild maceration along the wound margins. This patient is well-known to wound care in both the inpatient and outpatient settings. Normally, he has compression wraps applied to this extremity. However, he is currently infected and in pain, and his daughter Daxa reports that he has cut his compression wrap off using scissors and a letter clothing trades workers at home to relieve the discomfort. I applied modified compression today, rolling the coban outer layer on without any tension applied. When infection begins to resolve and pain is better controlled, he should resume 2-layer compression wraps to manage venous insufficiency. In addition, wounds were covered w/ [employer] alginate to help debride slough and absorb wound drainage. Plan discussed with daughter Daxa during the dressing change. Patient already has home care for wound, and this should continue along with his scheduled outpatient clinic visits. Report given to property and supply officer Becky.
[2017-04-12] MEDS: RIFAXIMIN 550 MG TAB PO SCH ×2 (11:59→20:14)
[2017-04-12] MEDS: FUROSEMIDE 40 MG TAB PO SCH (11:59)
[2017-04-12] MEDS: SPIRONOLACTONE 50 MG TAB PO SCH (11:59)
[2017-04-12] MEDS: HYDROXYUREA 500 MG CAP PO SCH ×2 (12:00→20:14)
--- NOTE | 2017-04-12 12:43 | ASMTCMCOM ---
CM Note CM Note Notes: Pt admitted w/cellulits. He lives at [facility]. Pt has some dementia at baseline. His son and dtr are local and are very supportive. I met w/pt and his dtr, Daxa. She reports that pt has one on one care during day at [facility] and evenings are a bit challenging as he is getting up during night but they are able to check in on pt fairly frequently. She said that pt did have fall at home last Thursday. Pt was current w/[facility] prior to admission (his [facility] RN's name is Shruti Juarez). Notified [facility] ([phone]), spoke to Romelia, to inform them of pt's admission. CM will also need to touch base w/[facility] ([phone]) prior to pt's dc. Current dc plan: home to [facility] w/[facility] (RN,PT) Date Signed: 04/12/2017 12:42 PM Electronically Signed By:Cecilia Montanez RN
--- NOTE | 2017-04-12 12:59 | PCMIDPN ---
Assessment/Plan: Assessment/Plan: * Fever/leukocytosis: Differential considerations include right lower extremity cellulitis versus early left lower lobe pneumonia. Right lower extremity does appear to have mild cellulitis medially below knee. Chest x-ray shows subtle left lower lobe infiltrate although no prominent respiratory symptoms. Will continue Unasyn 3 g IV Q 6 hr and assess clinical response. Agree with levofloxacin for possible pneumonia taking into account can be associated with confusion in the elderly population. Favor continued observation given overall presentation remains unclear in terms of etiology unless respiratory pathogen panel by PCR reveals etiology. * Chronic right lower extremity venous insufficiency with clean based ulceration : Continue local wound care and mild compression. Time spent, greater than 35 min, of which greater than half was spent in education/counseling/coordination of care related to fever, leukocytosis and diagnostic considerations including pneumonia and lower extremity cellulitis. 04/12/17 12:55 Subjective: Patient well known to Infectious Disease service from prior care of right lower extremity. Patient admitted with onset of fever yesterday to 100.6 without other specific localizing symptoms. Unclear if significant respiratory symptoms present although daughter notes no significant cough. Treated for a right lower extremity cellulitis with Augmentin times 10 days in mid March. Swab of wound at that time showed group A Streptococcus. Patient noted to have leukocytosis at time of hospital admission. He is now seen for further infectious disease evaluation. Objective: Vital Signs Temp Pulse Resp BP Pulse Ox 36.7 C 63 18 101/54 L 94 04/12/17 07:51 04/12/17 07:51 04/12/17 07:51 04/12/17 07:51 04/12/17 07:51 Laboratory Results 04/12/17 10:52 04/12/17 04:49 04/11/17 04/12/17 04/13/17 05:59 05:59 05:59 Intake Total 310 Output Total 250 Balance 60 Laboratory Tests 04/11/17 04/12/17 04/12/17 21:51 10:52 10:52 WBC 15.19 H Neut % (Auto) 87.1 H Procalcitonin 0.13 H Nasal Influenza A PCR NEGATIVE FOR FLU A Nasal Influenza B PCR NEGATIVE FOR FLU B - Physical Exam General Appearance: alert, non-toxic, other (Tearful regarding being in hospital on his birthday and that has continued recurrent problems with right leg) EENT: dry mucous membranes, No thrush Respiratory: lungs clear, No respiratory distress Cardiac/Chest: regular rate, rhythm, No systolic murmur Extremities: inflammation (Right lower extremity with venous insufficiency changes including erythema and warmth below knee with some erythema, edema, warmth and tenderness more medially extending from popliteal fossa to midportion of medial ricketts) Abdomen: non-tender, No distended ICD10 Worksheet Patient Problems: Problems Problem Status Onset Cellulitis Acute Upper gastrointestinal hemorrhage Active AVM (arteriovenous malformation) of colon Acute Anemia Acute Chronic Disease Mgmt/Transitional Care Acute Cirrhosis Acute GI bleed Acute Hematemesis Acute Open wound Acute Pneumonia Acute Portal hypertension Acute Portal hypertension with esophageal varices Acute Upper GI bleed Acute
[2017-04-12] MEDS: AMPICILLIN/SULBACTAM 3 GM in NS 100 ML IV SCH (18:12)
[2017-04-12] MEDS: DONEPEZIL HCL 5 MG TAB PO SCH (20:14)
[2017-04-12] MEDS: SERTRALINE HCL 50 MG TAB PO SCH (20:14)
[2017-04-12 22:15] VITALS: RESP 16
[2017-04-12] MEDS ORDERED: MELATONIN 3 MG TAB PO PRN (23:29)
[2017-04-13] MEDS: AMPICILLIN/SULBACTAM 3 GM in NS 100 ML IV SCH ×3 (00:06→12:27)
[2017-04-13 04:00] VITALS: BP 101/47
[2017-04-13] MEDS: LEVOTHYROXINE 50 MCG TAB PO SCH (05:06)
[2017-04-13 05:25] LABS: PLATELET COUNT 186 10^3/uL (150-400)
[2017-04-13 07:46] VITALS: PULSE 67; TEMP 98.1; O2SAT 94
[2017-04-13] MEDS: HYDROXYUREA 500 MG CAP PO SCH (09:12)
[2017-04-13] MEDS: RIFAXIMIN 550 MG TAB PO SCH (09:12)
[2017-04-13] MEDS: SPIRONOLACTONE 50 MG TAB PO SCH (09:12)
[2017-04-13] MEDS: FUROSEMIDE 40 MG TAB PO SCH (09:13)
--- NOTE | 2017-04-13 11:49 | PDIAF ---
- Diagnosis Code Status: Full Code - Medication Management Discharge Medications: Medications to Continue on Transfer Levothyroxine [Synthroid 50 mcg (*)] 50 mcg PO DAILY06 05/26/14 [Last Taken 09/21 08:00] Hydroxyurea [Hydrea 500 mg (*)] 500 mg PO BID 07/19/15 [Last Taken 04/11/17 08: 00] Rifaximin [Xifaxan] 550 mg PO BID #60 tab 09/22/15 [Last Taken 04/11/17 08:00] Sertraline HCl [Zoloft 50mg (*)] 50 mg PO DAILY@20 10/03/15 [Last Taken 09:00] Dextran/Hypromellose/Glycerin [Tears Naturale Forte Drops] 1 drop EACHEYE DAILY PRN 11/02/15 [Last Taken Unknown] Spironolactone [Aldactone] 50 mg PO DAILY 11/02/15 [Last Taken 04/11/17] Donepezil HCl [Aricept 5 MG (*)] 5 mg PO HS 01/03/17 [Last Taken 04/10/17] Herbals/Supplements -Info Only 1 ea PO DAILY 01/03/17 [Last Taken Unknown] Acetaminophen [Tylenol ES 500 mg (*)] 500 mg PO Q6 PRN 04/11/17 [Last Taken 09/21 14:00] Furosemide [Lasix 40 MG (*)] 40 mg PO DAILY 04/11/17 [Last Taken 04/11/17] levOFLOXACIN [levAQUIN (*)] 750 mg PO DAILY #5 tab 04/13/17 [Last Taken Unknown] Care Home Antibiotics: n/a, levaquin for 5 more days Discharge Medications: Refer to the Discharge Home Medication list for PRN reason. PICC Care - Routine: N/A - Orders Services needed: Registered Nurse, Physical Therapy, Occupational Therapy Home Care Face to Face: 04/13/2017, Katelynn Allison MD Isolation Type: None Diet Recommendation: no restrictions on diet Diet Texture: Regular Texture Diet Brandon: Not applicable Activity/Weight Bearing Restrictions: per pt/ot eval at home, suggest walker for now (usually uses treking poles) - Follow Up Care Current Providers and Referrals: Jorge Lewis MD [Primary Care Provider] - 1-2 days Clay Coy MD [Medical Doctor] - follow up in 1 week (needs wound care FU appt )
--- NOTE | 2017-04-14 09:38 | ASDISCHSUM ---
Discharge Information Plan Status:Home with Home Health Medically Cleared to Leave:04/12/2017 Discharge Date:04/13/2017 03:15 PM CM D/C Disposition: ADT D/C Disposition:Correction Facility Projected Discharge Date:04/13/2017 12:00 AM Transportation at D/C: Discharge Delay Reason: Follow-Up Date:04/13/2017 12:00 AM Discharge Slot: Final Diagnosis: Placement Information Referral Type:*Home Health Care Services Referral ID:[id number] Provider Name:[facility] Address 1:[address] Phone Number: Address 2: Fax Number: City:[place] Selection Factors: State:[place] Patient Contact Information Contact Name:SOUTH Relationship:Scott Address: Home Phone: City:[place] Alternate Phone: [facility] Code:[place] Email: Financial Information Financial Class: Primary Plan Desc:MEDICARE INPATIENT Primary Plan Number:[id number] Secondary Plan Desc:[employer]RAD INDEMNITY Secondary Plan Number:[id number] Assessment Information LACE LACE Length of stay for Answers: Less than 1 day current admission Acuity / Level of Care Answers: Was the patient admitted to hospital via the emergency department? Yes: Emergency dept visits in Answers: 1 last 6 months Score: 4 Date Signed: 04/12/2017 12:05 PM Electronically Signed By:Emily Mcknight RN [facility] CM Progress Note CM Note CM Note Notes: Pt admitted w/lynn. He lives at [facility]. Pt has some dementia at baseline. His son and dtr are local and are very supportive. I met w/pt and his dtrDaxa. She reports that pt has one on one care during day at [facility] and evenings are a bit challenging as he is getting up during night but they are able to check in on pt fairly frequently. She said that pt did have fall at home last Thursday. Pt was current w/[facility] prior to admission (his [facility] RN's name is Shruti Jaurez). Notified [facility] ([phone]), spoke to Romelia, to inform them of pt's admission. CM will also need to touch base w/[facility] ([phone]) prior to pt's dc. Current dc plan: home to [facility] w/[facility] (RN,PT) Date Signed: 04/12/2017 12:42 PM Electronically Signed By:Cecilia Montanez RN Case Management Discharge Plan Note Case Management Discharge Discharge Order Complete? Answers: Yes Patient to Obtain Answers: via Family Medications Transportation Arranged Answers: Family/Friends EMTALA Complete Answers: No Case Management Transport Answers: No Form Complete Faxed Final Orders Answers: Yes Agency/Facility Transfer Answers: Yes Report Printed & Faxed to Receiving Agency Family Notified Answers: Yes Discharge Comments Notes: Pt is being discharged back to [facility] today. CM met w/ pt and daughter for dispo planning. Daughter is in the process of finding a caregiver to stay w/ pt during the night. CM provided pt w/ list of non skilled HC. Pt will continue to have his caregivers during the day. Pt will have [facility], PT, OT, RN. sent d/c orders to [facility]. Daughter had questions about his wound dressings and questioned if he needed a walker. CM notified ROXANA Torres and CARLOS Hamilton. CM available for changes. Plan: [facility] with [facility], PT, JAY, RN with 24hr supervision Date Signed: 04/13/2017 12:35 PM Electronically Signed By:EUGENIA Ferguson Intervention Information
--- NOTE | 2017-04-16 09:33 | PDDCSUM ---
Discharge Summary Discharge Summary: 82 yo male with hx of RLE wound, hepatic encephalopathy, admitted for acute on chronic encephalopathy and infection. Initially he was treated with one dose of Unasysn for RLE cellulitis by the E.D. but upon examination by our hospitalist who is familiar with the patient, he felt that another source of infection was more likely. A CXR was obtained which was c/w likely right lower lobe infiltrate and possible bronchitis. This led to his abx being changed to Azithromycin. Infectious disease was consulted, and Dr Coy recommended restart of unasyn for cellulitis. On day of discharge, the patient is back to baseline mentation per his daughter. He remains on RA. Dr Erwin recommended continuing PO levaquin to cover CAP an cellulitis (both improved since admission) and follow up with wound care clinic. Home health care was arranged. He should also f/u with his PCP next week. #RLE Cellulitis, improved #CAP, improved #Leukocytosis, resolved #Cirrhosis, no ascites #Hepatic encephalopathy, stable/back to baseline Exam: VSS, RA NAD RRR COARSE BS S/NT/ND NO LE EDEMA, slight erythema noted MEDS: SEE MED REC. LEVAQUIN RX PROVIDED F/U: WITH PCP, wound care/ID TOTAL TIME SPENT ON D/C IS 40 MINS
== END 2017-04-13 15:15 | DRG 602 ==
LOC: OBSVTOIN 18:46 → F3E 20:13
PROVIDERS: ADMIT Internal Medicine; ATTEND Internal Medicine
DX: L03.115 Cellulitis of right lower limb (principal); J18.9 Pneumonia, unspecified organism; E03.9 Hypothyroidism, unspecified; K72.90 Hepatic failure, unspecified without coma; K74.69 Other cirrhosis of liver; D45 Polycythemia vera; Z86.12 Personal history of poliomyelitis
CPT/HCPCS: 97116-GP; 97162-GP; 97166-GO; G8978-GP-CJ; G8979-GP-CI; G8980-GP-CI; G8987-GO-CK; G8988-GO-CK; J0295; J0456

== ENCOUNTER → 2017-06-22 | Outpatient (CLI) | payer OTHER | LOC: FIMAGING 09:44 | PROVIDERS: ATTEND Internal Medicine | DX: K74.69 Other cirrhosis of liver (principal); K80.20 Calculus of gallbladder without cholecystitis without obstruction ==

== ENCOUNTER → 2017-10-02 | Outpatient (CLI) | payer OTHER | LOC: FIMAGING 16:44 | PROVIDERS: ATTEND Internal Medicine | DX: M79.605 Pain in left leg (principal); R22.42 Localized swelling, mass and lump, left lower limb ==

== ENCOUNTER 2017-10-09 18:44 | Observation (INO) | payer OTHER ==
--- NOTE | 2017-10-09 18:49 | EDPHY ---
HPI/HX/ROS/PE/MDM Narrative: CHIEF COMPLAINT: Fever, ill x1week HPI: The patient is an 82 y/o male with a history of cryptogenic cirrhosis post TIPS and chronic lower extremity wound arriving via EMS with acute fever today and general illness over the last week. History obtained from patient's daughter at bedside, who is also his MDPOA, as he is too altered to contribute. Per daughter, they recently made the decision to transfer the patient to hospice care and have an intake appointment scheduled for Thursday, 2 days from now. She reports his mental status has declined over the last 6 months with increasing dementia, agitation, and anxiety. This week he was feeling ill and was evaluated by [facility] at home on Thursday, 2 days ago. A chest x- ray then showed possible pneumonia and there was also suspicion for a UTI. He received IV antibiotics at that time and started azithromycin today. He apparently was doing better yesterday, but began to decline again today. Caregivers measured a fever of 103.5F today and EMS was contacted for transport. EMS reports he was hypotensive at 102/60 en route and had an SpO2 around 90% on 3LPM O2. Patient's daughter states her "hope is to get that fever down and get him stable and transfer him home to hospice." She also mentions his difficulty swallowing is "totally cognitive" and he's completed prior swallowing evaluations. She has noticed weeping from his lower extremity wounds , but otherwise no change in their condition. REVIEW OF SYSTEMS: Limited, obtainable only from patient's daughter. PMH: 1. Hypertension 2. Cryptogenic cirrhosis status post TIPS 2015 3. Lower extremity wound/cellulitis followed by [facility] 4. History of gastric esophageal varices 5. History of recurrent upper and lower GI bleed prior to TIPS 6. Polio age 13 7. History of Wenckebach heart block 8. Hypothyroidism 9. Spinal surgery 10. History of encephalopathy, most recent admission here 04/11/17 for this. Prior medical records reviewed including admission 04/11/17 for encephalopathy and infection. SOCIAL HISTORY: Nonsmoker. Rare alcohol. Lives in assisted living at the [facility]. Worked in the [employer]. Daughter, Veronica, at bedside is MDPOA. No formal DNR paperwork has been completed yet, but she states their intention is for no heroic efforts - no CPR, no intubation, no central line. PHYSICAL EXAM: General:Patient is ill-appearing, lethargic, not able to follow commands, shaking. BP 86/50, febrile 38.9C. ENT:Eyes are normal to inspection. ENT inspection normal. Neck: Normal inspection. Full range of motion. Respiratory: Poor inspiratory effort. No focal decrease. Cardiovascular: Regular rate and rhythm. Strong peripheral pulses. Normal cap refill. Abdomen:The abdomen is nontender to palpation. There are no peritoneal signs. Back: Normal to inspection. No tenderness to palpation. Skin: Normal color. No rash. Warm and dry. Extremities: Both lower extremities are wrapped in compression bandages. His left lower leg has a chronic wound with mild discharge no surrounding cellulitis Neuro: Disoriented. Moving all extremities. Tremulous. ED Course: This is an 82 y/o male with cryptogenic cirrhosis and progressive dementia who is planning to move to hospice care and presents tonight will fever, altered mentation, and generally poor health over the last week. He is ill-appearing, tremulous, unable to follow commands, has a weeping lower extremity wound, is febrile at 38.9C and hypotensive at 83/45. His daughter, who is his MDPOA, has clearly stated they do not want CPR, intubation, or central line as the plan is for patient to enter hospice with a DNR. Presentation is consistent with sepsis , likely respiratory or urinary source. Plan for IV, sepsis labs, chest x-ray, IV fluids, and supportive care. 650mg PO Tylenol and 500mL IV NS ordered. Chest x-ray shows bilateral pneumonia. Severe sepsis declared. 750mg IV Levaquin and NS fluid bolus ordered. Spoke with hospitalist service. Dr. Caballero accepts admission. - Data Points Imaging Results: Imaging Impressions Chest X-Ray 10/09/17 18:50 Impression: Bilateral lower lung zone pneumonia, left greater than right. Imaging: I viewed and interpreted images myself Laboratory Results: Laboratory Results 10/09/17 18:50 10/09/17 18:50 10/09/17 10/09/17 10/09/17 19:04 19:00 18:50 WBC RBC Hgb Hct MCV MCH MCHC RDW Plt Count MPV Neut % (Auto) Lymph % (Auto) [place] % (Auto) Eos % (Auto) Baso % (Auto) Nucleat RBC Rel Count Absolute Neuts (auto) Absolute Lymphs (auto) Absolute Monos (auto) Absolute Eos (auto) Absolute Basos (auto) Absolute Nucleated RBC Immature Gran % Seg Neutrophils % Band Neutrophils % Lymphocytes % Monocytes % Eosinophils % Basophils % Metamyelocytes % Myelocytes % Promyelocytes % Blast Cells % Immature Gran # Absolute Seg Neuts Absolute Band Neuts Absolute Lymphocytes Absolute Monocytes Absolute Eosinophils Absolute Basophils Absolute Metamyelocyte Absolute Myelocytes Absolute Promyelocytes Absolute Plasma Cells Nucleated RBCs Absolute Blast Cells Plasma Cells % Platelet Estimate Polychromasia Microcytic Cells Oval Macrocytes Elliptocytes Schistocytes Smear Review By POC Blood Source VENOUS Patient Temperature 38.9 DEGREES DEGREES POC VBG pH 7.51 H (7.31-7.42) POC VBG pCO2 28 mmHg L mmHg (40-44) POC VBG pO2 38 mmHg mmHg (35-40) POC VBG HCO3 22 mEq/L mEq/L (22-26) POC VBG Total CO2 23 mEq/L mEq/L (21-27) POC VBG Base Excess 0.0 mEq/L mEq/L (-2.5-2.5) VBG Lactic Acid 2.0 mmol/L mmol/L (0.7-2.1) POC Mix VBG O2 Sat 74 % % (65-75) Sodium 133 mEq/L L mEq/L (135-145) Potassium 4.4 mEq/L mEq/L (3.3-5.0) Chloride 103 mEq/L mEq/L (97-110) Carbon Dioxide 26 mEq/l mEq/l (22-31) Anion Gap 4 mEq/L L mEq/L (8-16) BUN 31 mg/dL H mg/dL (7-23) Creatinine 1.2 mg/dL mg/dL (0.7-1.3) Estimated GFR 58 Glucose 107 mg/dL H mg/dL (70-100) POC Lactic Acid Aleksander 1.9 mmol/L mmol/L (0.7-2.1) Calcium 8.1 mg/dL L mg/dL (8.5-10.4) 10/09/17 18:50 WBC 6.66 10^3/uL 10^3/uL (3.80-9.50) RBC 2.29 10^6/uL L 10^6/uL (4.40-6.38) Hgb 10.3 g/dL L g/dL (13.7-17.5) Hct 29.1 % L % (40.0-51.0) MCV 127.1 fL H fL (81.5-99.8) MCH 45.0 pg H pg (27.9-34.1) MCHC 35.4 g/dL g/dL (32.4-36.7) RDW 17.5 % H % (11.5-15.2) Plt Count 174 10^3/uL 10^3/uL (150-400) MPV 11.6 fL fL (8.7-11.7) Neut % (Auto) Not Reported Lymph % (Auto) Not Reported [place] % (Auto) Not Reported Eos % (Auto) Not Reported Baso % (Auto) Not Reported Nucleat RBC Rel Count Not Reported Absolute Neuts (auto) Not Reported Absolute Lymphs (auto) Not Reported Absolute Monos (auto) Not Reported Absolute Eos (auto) Not Reported Absolute Basos (auto) Not Reported Absolute Nucleated RBC Not Reported Immature Gran % Not Reported Seg Neutrophils % 76.5 % % Band Neutrophils % 12.7 % % Lymphocytes % 3.9 % % Monocytes % 6.9 % % Eosinophils % 0 % % Basophils % 0 % % Metamyelocytes % 0 % % Myelocytes % 0 % % Promyelocytes % 0 % % Blast Cells % 0 % % Immature Gran # Not Reported Absolute Seg Neuts 5.00 10^/uL 10^/uL (1.70-6.50) Absolute Band Neuts 0.83 10^3/uL H 10^3/uL (0.00-0.70) Absolute Lymphocytes 0.26 10^3/uL L 10^3/uL (1.00-3.00) Absolute Monocytes 0.45 10^3/uL 10^3/uL (0.30-0.80) Absolute Eosinophils 0.00 10^3/uL L 10^3/uL (0.03-0.40) Absolute Basophils 0.00 10^3/uL L 10^3/uL (0.02-0.10) Absolute Metamyelocyte 0.00 10^3/mL 10^3/mL (0.00-0.00) Absolute Myelocytes 0.00 10^3/mL 10^3/mL (0.00-0.00) Absolute Promyelocytes 0.00 10^3/uL 10^3/uL (0.00-0.00) Absolute Plasma Cells 0.00 10^3/uL 10^3/uL (0.00-0.00) Nucleated RBCs 0 /100 WBC /100 WBC (0-0) Absolute Blast Cells 0.00 10^3/uL 10^3/uL (0.00-0.00) Plasma Cells % 0 % % Platelet Estimate ADEQUATE (ADEQ) Polychromasia 1+ H Microcytic Cells 1+ H Oval Macrocytes 3+ H Elliptocytes 1+ H Schistocytes 1+ H Smear Review By Pending POC Blood Source Patient Temperature POC VBG pH POC VBG pCO2 POC VBG pO2 POC VBG HCO3 POC VBG Total CO2 POC VBG Base Excess VBG Lactic Acid POC Mix VBG O2 Sat Sodium Potassium Chloride Carbon Dioxide Anion Gap BUN Creatinine Estimated GFR Glucose POC Lactic Acid Aleksander Calcium Medications Given: Levofloxacin/Dextrose (Levaquin 750 Mg (Premix)) 150 mls @ 100 mls/hr IV EDNOW ONE PRN Reason: Protocol Stop: 10/09/17 21:00 Last Admin: 10/09/17 19:35 Dose: 150 mls Discontinued Medications Acetaminophen (Tylenol) 650 mg PO EDNOW ONE Stop: 10/09/17 18:55 Last Admin: 10/09/17 18:59 Dose: 650 mg Sodium Chloride (Ns) 500 mls @ 1,000 mls/hr IV EDNOW ONE PRN Reason: Protocol Stop: 10/09/17 19:23 Last Admin: 10/09/17 19:00 Dose: 500 mls Sodium Chloride (Ns) 1,900 mls @ 3,800 mls/hr 30 ml/kg infuse over 30 min ( 1900 ml) IV EDNOW ONE PRN Reason: Protocol Stop: 10/09/17 20:01 Last Admin: 10/09/17 19:36 Dose: 1,900 mls Point of Care Test Results: Blood Gas/Lactic Acid-Arterial 10/09/17 19:04 POC Blood Source VENOUS Blood Gas/Lactic Acid-Venous 10/09/17 19:04 POC VBG pH 7.51 H (7.31-7.42) POC VBG pCO2 28 mmHg L mmHg (40-44) POC VBG pO2 38 mmHg mmHg (35-40) POC VBG HCO3 22 mEq/L mEq/L (22-26) POC VBG Total CO2 23 mEq/L mEq/L (21-27) POC VBG Base Excess 0.0 mEq/L mEq/L (-2.5-2.5) POC Mix VBG O2 Sat 74 % % (65-75) POC Lactic Acid Aleksander 1.9 mmol/L mmol/L (0.7-2.1) General Time Seen by Provider: 10/09/17 18:46 Initial Vital Signs: Initial Vital Signs Temperature (C) 38.9 C H 10/09/17 18:46 Heart Rate 81 10/09/17 18:46 Respiratory Rate 19 10/09/17 18:46 Blood Pressure 83/45 L 10/09/17 18:46 O2 Sat (%) 96 10/09/17 18:46 O2 Delivery Mode Nasal Cannula O2 (L/minute) 2 Allergies/Adverse Reactions: adhesive Allergy (Verified 04/11/17 17:08) NSAIDS (Non-Steroidal Anti-Inflamma Allergy (Verified 04/11/17 17:08) Increased risk of bleeding due to hematological d.o. Home Medications: Medication Instructions Recorded ALPRAZolam [Xanax 0.25 MG (*)] 0.125 mg PO HS PRN 10/09/17 Acetaminophen [Tylenol 325mg (*)] 325 - 650 mg PO Q4H PRN 10/09/17 Azithromycin [Zithromax] 250 mg PO DAILY 10/09/17 Donepezil HCl [Aricept 5 MG (*)] 5 mg PO HS 10/09/17 Furosemide [Lasix 40 MG (*)] 40 mg PO DAILY 10/09/17 Herbals/Supplements -Info Only 1 ea PO DAILY 10/09/17 Hydrocortisone 1% [Hydrocortisone 1 mark TP DAILY PRN 10/09/17 1% cream (*)] Hydroxyurea [Hydrea 500 mg (*)] 500 mg PO BID 10/09/17 Ivermectin [Soolantra] 1 gm TP BID 10/09/17 Levothyroxine [Synthroid 50 mcg 50 mcg PO DAILY06 10/09/17 (*)] Promiseb Topical Cream 1 gm TP BID 10/09/17 Propylene Glycol/Peg 400/Pf 1 each OP PRN PRN 10/09/17 [Systane 0.3-0.4% Eye Drops] Rifaximin [Xifaxan] 550 mg PO BID 10/09/17 Saliva Substitute Combo No.9 15 ml MM PRN PRN 10/09/17 [Biotene (*)] Sertraline HCl [Zoloft 25mg (*)] 25 mg PO HS 10/09/17 Sertraline HCl [Zoloft 50mg (*)] 50 mg PO HS 10/09/17 Spironolactone [Aldactone 50 MG 50 mg PO DAILY 10/09/17 (RX)] Terbinafine HCl [Lamisil] 1 spray TP DAILY PRN 10/09/17 busPIRone [Buspar (*)] 5 mg PO BID 10/09/17 traMADol [Ultram 50 mg (*)] 50 mg PO Q4H PRN 10/09/17 Departure - Departure Disposition: [facility] Inpatient Acute Clinical Impression: Severe sepsis Pneumonia Qualifiers: Pneumonia type: due to unspecified organism Laterality: bilateral Lung location : upper lobe of lung Qualified Code(s): J18.1 - Lobar pneumonia, unspecified organism Condition: Serious Report Scribed for: Kip Reed Report Scribed by: Carmela Roldan Date of Report: 10/09/17 Time of Report: 18:49 Physician Review and Approval Statement: Portions of this note were transcribed by an ED scribe. I personally performed the history, physical exam, and medical decision making; and confirm the accuracy of the information in the transcribed note.
[2017-10-09] MEDS ORDERED: ACETAMINOPHEN 325 MG TAB PO ONE (18:54)
[2017-10-09] MEDS ORDERED: NS 500 ML IV ONE (18:54)
[2017-10-09 19:02] LABS: PLATELET COUNT 174 10^3/uL (150-400)
[2017-10-09] MEDS ORDERED: NS 1,900 ML IV ONE (19:32)
[2017-10-09] MEDS ORDERED: ONDANSETRON DISINTEGRATING 4 MG TAB PO PRN (20:15)
[2017-10-09] MEDS ORDERED: ONDANSETRON 4 MG/2 ML VIAL IVP PRN (20:15)
[2017-10-09] MEDS ORDERED: ACETAMINOPHEN 325 MG TAB PO PRN (20:15)
[2017-10-09] MEDS ORDERED: GLYCOPYRROLATE 0.2 MG/1 ML VIAL IVP/IM PRN (21:31)
[2017-10-09] MEDS ORDERED: traMADol 50 MG TAB PO PRN (21:31)
[2017-10-09] MEDS ORDERED: NS 1,000 ML IV SCH (21:45)
--- NOTE | 2017-10-09 22:04 | GHP ---
[f rep st] HISTORY AND PHYSICAL DATE OF ADMISSION: 10/09/2017 CHIEF COMPLAINT: Cough, rigors. HISTORY OF PRESENT ILLNESS: An 82-year-old male with history of cryptogenic cirrhosis status post TIPS, chronic left lower chronic left leg wound, brought from the [facility] via EMS, with acute fever. He had a temperature of 103 and rigors, per daughter. History is obtained from daughter and son as the patient is encephalopathic. Just this evening he coughed up rajesh-colored phlegm. Family has opted to transition him to hospice care. They have an appointment with [facility] on Thursday. They state his mental status has declined over the past 6 months with increased dementia, agitation, anxiety. When he was feeling this ill this week, he was evaluated by dispatch help at home on Thursday. Chest x- ray showed possible pneumonia, and there was also suspicion for UTI. He received IV antibiotics at that time and started on azithromycin today. En route, he was 90% on 3 L. Daughter's goal is to get him stable and transfer him to home to hospice. Also notes that he has been having some difficulty swallowing, especially some of his larger pills like rifaximin. REVIEW OF SYSTEMS: I completed a 10-point review of system per chart review and per daughter. PAST MEDICAL HISTORY: 1. Hypertension. 2. 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 3. Left lower extremity wound/cellulitis, last hospitalized April 2017. 4. History of gastric and esophageal varices. 5. History of recurrent upper GI bleeds prior to TIPS; none since. 6. Polio at age 13. 7. History of Wenckebach heart block. 8. Hypothyroidism. PAST SURGICAL HISTORY: Spinal surgery. FAMILY HISTORY: Noncontributory. SOCIAL HISTORY: Lives at the [facility]. No alcohol, tobacco or illicits. HOME MEDICATIONS: Tramadol 50 mg p.r.n., Lasix 40 mg daily, Systane eye drops, Tylenol as needed, Lamisil, hydrocortisone cream and Biotene, rifaximin 550 mg twice daily, spironolactone 50 daily, Soolantra 1 g topical twice daily, Zoloft 75 mg at night, herbal supplement, levothyroxine 50 mcg daily, BuSpar 5 twice daily, Aricept 5, Zithromax 250 started today, Xanax 0.125 p.o. at bedtime p.r.n. ALLERGIES: Adhesive, NSAIDs. PHYSICAL EXAM: VITALS: Temperature 38.3, blood pressure 95/50, heart rate 70s , respirations 20, 93% on 2 L. GENERAL: Ill-appearing, cachectic. HEENT: Hearing aids in place. Dry mucous membranes. CV: Regular rhythm. LUNGS: Diminished at bases. Poor inspiratory effort. ABDOMEN: Soft, nontender, nondistended. Positive bowel sounds. : No Brandon. MUSCULOSKELETAL: Moving all 4 extremities. SKIN: Left ricketts wound with granulation tissue. Wound with no surrounding cellulitis. NEURO: No focal deficits. PSYCH: He is alert. Chest x-ray is personally reviewed by me and bilateral infiltrates. ASSESSMENT AND PLAN: 1. Sepsis: Secondary pneumonia, hypotension. Lactate is normal. Family's goal is to stabilize him and able to transfer him home with hospice. We will continue IV ceftriaxone and azithromycin. 2. Hypotension due to acute illness. Continue IV fluids. Hold diuretics. 3. History of cryptogenic cirrhosis. Hold diuretics with hypotension. May resume this at discharge for comfort, If not tolerating rifaximin, would stop this. 4. Hypothyroidism: Discontinue Synthroid. 5. Agitation/anxiety: They have been weaning off Xanax and started BuSpar. I will add Zyprexa at bedtime. 6. Goals: Both son and daughter agree with comfort measures here besides antibiotics and IV fluids. They would not want to escalate care with central line, pressors or transfer to the ICU. We will have Case Management contact through hospice tomorrow to help facilitate discharge quickly. 7. Diet: Regular. 8. Deep venous thrombosis prophylaxis: Sequential compression devices. Patient warrants observation admission for acute pneumonia, requiring IV fluids , antibiotics. /[id number]/MODL MTDD
--- NOTE | 2017-10-10 08:47 | HOSPPROG ---
Hospitalist Progress Note Assessment/Plan: patient is an 82 y/o male wh hx of cryptogenic cirrhosis s/p TIPS who was brought in for fevers. The plan is to transfer him to hospice and try to stabilize him. *sepsis -pna -lactate is stable -blood cx pending *pna -ceftriaxone and azithromycin *hypotension -bp is very low this morning *cirrhosis, cryptogenic -unable to give him diuretics due to hypotension *hypothyroidism -Synthroid *agitation, anxiety -was recently started on Buspar *Plan: spoke with the patient's daughter's to review goals of care. They would like to continue his medications and treat his pneumonia. They would like to talk with [facility] this afternoon after 1 to further discuss. CM aware and involved. They would like a speech therapist to see him in addition to be sure he isn't aspirating. Subjective: Gasper has no complaints. Objective: Vital Signs Temp Pulse Resp BP Pulse Ox 36.6 C 67 14 64/50 L 2 L 10/10/17 07:14 10/10/17 07:14 10/10/17 07:14 10/10/17 07:14 10/10/17 07:14 10/09/17 10/10/17 10/11/17 05:59 05:59 05:59 Intake Total 2357 Output Total 200 Balance 2157 - Physical Exam Constitutional: not in pain, chronically ill appearing Eyes: PERRL Ears, Nose, Mouth, Throat: hard of hearing Cardiovascular: regular rate and rhythym Respiratory: no respiratory distress, reduced air movement Gastrointestinal: normoactive bowel sounds Skin: warm, No normal color (pale) Musculoskeletal: generalized weakness Neurologic: other (alert but not very interactive) ICD10 Worksheet Patient Problems: Problems Problem Status Onset Pneumonia Acute Severe sepsis Acute Upper gastrointestinal hemorrhage Active AVM (arteriovenous malformation) of colon Acute Anemia Acute Cellulitis Acute Chronic Disease Mgmt/Transitional Care Acute Cirrhosis Acute GI bleed Acute Hematemesis Acute Open wound Acute Portal hypertension Acute Portal hypertension with esophageal varices Acute Upper GI bleed Acute
[2017-10-10 08:55] VITALS: BP 94/50
[2017-10-10] MEDS ORDERED: busPIRone 5 MG TAB PO SCH (09:00)
[2017-10-10] MEDS ORDERED: AZITHROMYCIN IV 250 MG in NS 250 ML IV SCH (09:00)
--- NOTE | 2017-10-10 16:07 | PDIAF ---
- Diagnosis Diagnosis: pna, crypotgenic cirrhosis, hypotension Code Status: Do Not Resuscitate - Medication Management Discharge Medications: Medications to Continue on Transfer ALPRAZolam [Xanax 0.25 MG (*)] 0.125 mg PO HS PRN 10/09/17 [Last Taken Unknown] Acetaminophen [Tylenol 325mg (*)] 325 - 650 mg PO Q4H PRN 10/09/17 [Last Taken Unknown] Azithromycin [Zithromax] 250 mg PO DAILY 10/09/17 [Last Taken Unknown] Donepezil HCl [Aricept 5 MG (*)] 5 mg PO HS 10/09/17 [Last Taken Unknown] Furosemide [Lasix 40 MG (*)] 40 mg PO DAILY 10/09/17 [Last Taken Unknown] Herbals/Supplements -Info Only 1 ea PO DAILY 10/09/17 [Last Taken Unknown] Hydrocortisone 1% [Hydrocortisone 1% cream (*)] 1 mark TP DAILY PRN 10/09/17 [ Last Taken Unknown] Hydroxyurea [Hydrea 500 mg (*)] 500 mg PO BID 10/09/17 [Last Taken Unknown] Ivermectin [Soolantra] 1 gm TP BID 10/09/17 [Last Taken Unknown] Levothyroxine [Synthroid 50 mcg (*)] 50 mcg PO DAILY06 10/09/17 [Last Taken Unknown] Promiseb Topical Cream 1 gm TP BID 10/09/17 [Last Taken Unknown] Propylene Glycol/Peg 400/Pf [Systane 0.3-0.4% Eye Drops] 1 each OP PRN PRN 10/09 [Last Taken Unknown] Rifaximin [Xifaxan] 550 mg PO BID 10/09/17 [Last Taken Unknown] Saliva Substitute Combo No.9 [Biotene (*)] 15 ml MM PRN PRN 10/09/17 [Last Taken Unknown] Sertraline HCl [Zoloft 25mg (*)] 25 mg PO HS 10/09/17 [Last Taken Unknown] Sertraline HCl [Zoloft 50mg (*)] 50 mg PO HS 10/09/17 [Last Taken Unknown] Spironolactone [Aldactone] 50 mg PO DAILY 10/09/17 [Last Taken Unknown] Terbinafine HCl [LAMISIL] 1 spray TP DAILY PRN 10/09/17 [Last Taken Unknown] busPIRone [Buspar (*)] 5 mg PO BID 10/09/17 [Last Taken Unknown] traMADol [Ultram 50 mg (*)] 50 mg PO Q4H PRN 10/09/17 [Last Taken Unknown] levOFLOXACIN [levAQUIN (*)] 750 mg PO DAILY #5 tab 10/10/17 [Last Taken Unknown] Discharge Medications: Refer to the Discharge Home Medication list for PRN reason. - Orders Isolation Type: None Diet Recommendation: no restrictions on diet Diet Texture: Regular Texture Diet Additional Instructions: care per hospice - Follow Up Care Current Providers and Referrals: Jorge Lewis MD [Primary Care Provider] - As per Instructions
--- NOTE | 2017-10-10 16:23 | GDS ---
[f rep st] DISCHARGE SUMMARY DISCHARGE DIAGNOSES: 1. Sepsis. 2. Pneumonia. 3. Hypertension. 4. Cryptogenic cirrhosis. 5. Hypothyroidism. 6. Anxiety and agitation. HISTORY OF PRESENT ILLNESS: Briefly, the patient is an 82-year-old male with a history of cryptogenic cirrhosis, status post TIPS, who was brought to the emergency room for fevers. The family has decided they would like for him to go on hospice. He will be discharged home with hospice care. HOSPITAL COURSE: 1. Sepsis: His lactate is stable. Blood cultures pending. 2. Pneumonia: He was treated with ceftriaxone and azithromycin. 3. Hypertension: Blood pressure has been low throughout his stay. 4. Cryptogenic cirrhosis: I have been unable to give him diuretics due to his hypotension. 5. Hypothyroidism, on Synthroid. 6. Agitation and anxiety: Was recently started on BuSpar. DISCHARGE CONDITION: Stable. Blood pressure is 94/50, heart rate is 67, respiratory rate of 14, O2 sats on 2 L are 96%, temperature is 36.6 Celsius. DISCHARGE INSTRUCTIONS: He will get care according to hospice. Greater than 30 minutes organizing the patient's care today. /[id number]/MODL MTDD
--- NOTE | 2017-10-10 16:24 | ASMTDCNOTE ---
Case Management Discharge Discharge Order Complete? Answers: Yes Patient to Obtain Answers: via Family Medications Transportation Arranged Answers: Other Notes: [facility] stretcher, per [facility] Transport will Pick (Date 10/10/2017 06:00 PM & Time) Case Management Transport Answers: Yes Form Complete Faxed Final Orders Answers: Yes Family Notified Answers: Yes Discharge Comments Notes: [facility]. DC orders faxed to [facility] and [facility]. ROXANA Maynard to call report to the [facility]. [facility] set up stretcher transport w [facility]. Family will accompany patient. Date Signed: 10/10/2017 04:23 PM Electronically Signed By:Jessica Christianson RN
[2017-10-10] MEDS ORDERED: DONEPEZIL HCL 5 MG TAB PO SCH (21:00)
[2017-10-10] MEDS ORDERED: SERTRALINE HCL 50 MG TAB PO SCH (21:00)
[2017-10-10] MEDS ORDERED: OLANZapine DISINTEGR 5 MG TAB PO SCH (21:00)
[2017-10-10] MEDS ORDERED: SERTRALINE HCL 25 MG TAB PO SCH (21:00)
== END 2017-10-10 18:21 ==
LOC: EDUNIT# → F3E 21:47
PROVIDERS: ADMIT Internal Medicine; ATTEND Internal Medicine
DX: A41.9 Sepsis, unspecified organism (principal); J18.9 Pneumonia, unspecified organism; I10 Essential (primary) hypertension; K74.69 Other cirrhosis of liver; E03.9 Hypothyroidism, unspecified; F41.9 Anxiety disorder, unspecified; R45.1 Restlessness and agitation
CPT/HCPCS: 71045; G0378; J0456; J0696; J1956; 83605-PO; 96365